=== PATIENT | male | born 1945 | race Caucasian/White ===

== ENCOUNTER 2016-07-06 10:19 | Inpatient (IN) | payer OTHER, MEDICARE ==
[2016-07-06] VITALS (13 sets, daily range): BP systolic 107–175; BP diastolic 56–97; PULSE 63–125; RESP 18–20; TEMP 97.5–98.3; O2SAT 94–99
[~2016-07-06] VITALS: Ht 180.3 cm; Wt 71.3 kg
[~2016-07-06 10:19] MED LIST: 1-ME1LIQ PO; ASPI81TA11 PO; ATOR20TA PO; LEVA500T PO; METO100T PO
[2016-07-06] MEDS ORDERED: SODIUM CHLORIDE 0.9% FLUSH 5 ML FLUSH IVF PRN (10:30)
[2016-07-06] MEDS ORDERED: AMIODARONE INJ 150 MG in DEXTROSE 5% IN WATER 100ML INJ 97 ML IV ONE ×2 (10:30)
[2016-07-06] MEDS ORDERED: AMIODARONE INJ 450 MG in DEXTROSE 5% IN WATE(EXCEL) INJ 241 ML IV SCH ×4 (10:45→16:30)
--- NOTE | 2016-07-06 10:47 | PD ---
HPI . Firing of defibrillator Chief Complaint: Cardiac Complaint Time Seen by Provider: 10:28 Travel History International Travel<30 days: No Contact w/Intl Traveler<30days: No Traveled to known affect area: No History of Present Illness HPI Patient reports that he was taking out the garbage when his defibrillator fired. He states that it fired a total of 3 times. He denies any symptoms associated with this. He denies chest pain, shortness of breath, nausea, dizziness, diaphoresis. He states that he feels perfectly fine. He states that he has never had his defibrillator fire before. PFSH Past Medical History Arthritis: No Asthma: No Autoimmune Disease: No Heart Rhythm Problems: No Cancer: No Cardiovascular Problems: Yes (hyperlipidemia, CHF, Afib, SVT, ICD) High Cholesterol: Yes Chest Pain: No Congestive Heart Failure: Yes COPD: No Cerebrovascular Accident: No Diabetes: Yes Patient Takes Glucophage: No Diminished Hearing: No Endocrine: Yes (diabetes diet controled) Gastrointestinal Disorders: No GERD: No Genitourinary: No Headaches: No Hepatitis: No Hiatal Hernia: No Heparin Induced Thrombocytopen: No Hypertension: Yes Immune Disorder: No Implanted Vascular Access Dvce: Yes (PACEMAKER) Kidney Stones: No Musculoskeletal: No Neurologic: No Psychiatric: No Reproductive: No Respiratory: No Migraines: No Myocardial Infarction: No Renal Failure: No Seizures: No Sickle Cell Disease: No Sleep Apnea: No Thyroid Disease: No Ulcer: No Influenza Vaccination: Yes PNEUMOCCOCAL Vaccine (Year): 1 ?: Not Past Surgical History Abdominal Surgery: No AICD: Yes (BIOTRONIK) Appendectomy: No Arteriovenous Shunt: No Cardiac Surgery: Yes (CABG 2 VESSELS) Cholecystectomy: No Coronary Artery Bypass Graft: Yes (2 VESSELS) Ear Surgery: No Endocrine Surgery: No Eye Surgery: No Genitourinary Surgery: No Gynecologic Surgery: No Insulin Pump: No Joint Replacement: No Neurologic Surgery: No Oral Surgery: Yes (DENTURES UPPER AND LOWER) Pacemaker: Yes Thoracic Surgery: Yes Other Surgery: Yes Social History Alcohol Use: No Tobacco Use: No Substance Use: No Allergies-Medications (Allergen,Severity, Reaction): Coded Allergies: No Known Allergies (Unverified , 02/16/16) Reported Meds & Prescriptions Reported Meds & Active Scripts Active Reported Aspirin EC (Aspirin) 81 Mg Tabdr 81 Mg PO DAILY Atorvastatin (Atorvastatin Calcium) 40 Mg Tab 40 Mg PO HS Metoprolol Tartrate 100 Mg Tab 100 Mg PO BID Review of Systems Except as stated in HPI: all other systems reviewed are Neg Cardiovascular: No: Chest Pain or Discomfort, Palpitations, Diaphoresis Respiratory: No: Shortness of Breath Gastrointestinal: No: Nausea Neurologic: No: Weakness, Dizziness Physical Exam Narrative GENERAL: Awake and alert and calm appearing SKIN: Warm and dry. HEAD: Atraumatic. Normocephalic. EYES: Pupils equal and round. ENT: No nasal bleeding or discharge. Mucous membranes pink and moist. NECK: Trachea midline. Neck is supple with full range of motion. CARDIOVASCULAR: Rapid rate, regular rhythm. RESPIRATORY: No accessory muscle use. Lungs are clear with full air movement throughout GASTROINTESTINAL: Abdomen soft, non-tender, nondistended. MUSCULOSKELETAL: No obvious deformities. No edema. NEUROLOGICAL: Awake and alert. No obvious cranial nerve deficits. Motor grossly within normal limits. Normal speech. PSYCHIATRIC: Appropriate mood and affect; insight and judgment normal. Data Data Last Documented VS Vital Signs Date Time Temp Pulse Resp B/P Pulse Ox O2 Delivery O2 Flow Rate FiO2 07/06/16 14:29 64 18 133/68 99 Nasal Cannula 2 07/06/16 10:47 97.8 Orders Ecg Monitoring (07/06/16 10:28) Blood Pressure (07/06/16 10:28) Vital Signs (07/06/16 10:28) Iv Access Insert/Monitor (07/06/16 10:28) Oximetry (07/06/16 10:28) Amiodarone Inj (Cordarone Inj) (07/06/16 10:30) Amiodarone Inj (Cordarone Inj) (07/06/16 10:45) Sodium Chloride 0.9% Flush (Ns Flush) (07/06/16 10:30) Ckmb (Isoenzyme) Profile (07/06/16 10:29) Complete Blood Count With Diff (07/06/16 10:29) Comprehensive Metabolic Panel (07/06/16 10:29) Magnesium (Mg) (07/06/16 10:29) Prothrombin Time / Inr (Pt) (07/06/16 10:29) Act Partial Throm Time (Ptt) (07/06/16 10:29) Troponin I (07/06/16 10:29) Chest, Single Ap (07/06/16 10:29) Bilateral Bp Monitoring (07/06/16 10:29) Oxygen Administration (07/06/16 10:29) Sodium Chloride 0.9% Flush (Ns Flush) (07/06/16 10:30) CKMB (07/06/16 10:44) CKMB% (07/06/16 10:44) Troponin I (07/06/16 11:41) Troponin I (07/06/16 13:30) Electrocardiogram (07/06/16 10:26) Place In Observation (07/06/16 14:14) Vital Signs (Adult) Q4H (07/06/16 14:14) Activity Bed Rest With Brp (07/06/16 14:14) ^ Carpet Jack / Telemetry .CONTINUOUS (07/06/16 14:14) Diet Heart Healthy (07/06/16 Dinner) Basic Metabolic Panel (Bmp) (07/07/16 06:00) Complete Blood Count With Diff (07/07/16 06:00) Troponin I (07/06/16 14:14) Troponin I (07/06/16 20:14) Scd Bilateral/Knee High MORIS.QSHIFT (07/06/16 14:14) Magnesium (Mg) (07/07/16 06:00) Electrocardiogram (07/06/16 14:14) Electrocardiogram (07/06/16 20:14) Electrocardiogram (07/07/16 02:14) Labs Laboratory Tests Test 07/06/16 07/06/16 10:44 13:20 White Blood Count 7.3 TH/MM3 Red Blood Count 3.99 MIL/MM3 Hemoglobin 12.0 GM/DL Hematocrit 35.7 % Mean Corpuscular Volume 89.5 FL Mean Corpuscular Hemoglobin 30.1 PG Mean Corpuscular Hemoglobin 33.7 % Concent Red Cell Distribution Width 20.5 % Platelet Count 177 TH/MM3 Mean Platelet Volume 8.5 FL Neutrophils (%) (Auto) 73.9 % Lymphocytes (%) (Auto) 16.6 % Monocytes (%) (Auto) 6.6 % Eosinophils (%) (Auto) 2.5 % Basophils (%) (Auto) 0.4 % Neutrophils # (Auto) 5.4 TH/MM3 Lymphocytes # (Auto) 1.2 TH/MM3 Monocytes # (Auto) 0.5 TH/MM3 Eosinophils # (Auto) 0.2 TH/MM3 Basophils # (Auto) 0.0 TH/MM3 CBC Comment DIFF FINAL Differential Comment Prothrombin Time 10.7 SEC Prothromb Time International 1.0 RATIO Ratio Activated Partial 22.8 SEC Thromboplast Time Sodium Level 138 MEQ/L Potassium Level 3.6 MEQ/L Chloride Level 107 MEQ/L Carbon Dioxide Level 18.9 MEQ/L Anion Gap 12 MEQ/L Blood Urea Nitrogen 21 MG/DL Creatinine 1.49 MG/DL Estimat Glomerular Filtration 47 ML/MIN Rate Random Glucose 244 MG/DL Calcium Level 9.8 MG/DL Magnesium Level 1.5 MG/DL Total Bilirubin 1.0 MG/DL Aspartate Amino Transf 32 U/L (AST/SGOT) Alanine Aminotransferase 33 U/L (ALT/SGPT) Alkaline Phosphatase 104 U/L Total Creatine Kinase 113 U/L Creatine Kinase MB 2.4 NG/ML Troponin I 0.10 NG/ML 0.92 NG/ML Total Protein 8.4 GM/DL Albumin 3.7 GM/DL MDM Medical Decision Making Medical Screen Exam Complete: Yes Emergency Medical Condition: Yes Interpretation(s) EKG shows a paced rhythm at 123. His EKG looks unchanged from previous with the exception of the rate. Differential Diagnosis Differential diagnosis includes but is not limited to acute coronary event, pacemaker dysfunction Narrative Course This patient presents asymptomatic following discharge of his defibrillator. EMS produces rhythm strips that look like V. tach. They started amiodarone en route. Patient is being evaluated for ACS. He is receiving amiodarone for rate control. We have called his pacemaker/defibrillator shrink pit supervisor for interrogation. Chest x-ray per the radiologist's interpretation is negative for acute process. The chest x-ray was independently viewed by me. 11:35 AM Patient's heart rate is down to 80-90. He continues to have no symptoms. 1:15 PM Repeat EKG shows a paced rhythm. It is now 74. His defibrillator/pacemaker has been interrogated. He was actually in an atrial driven rhythm when the defibrillator fired. The interrogator has adjusted rate at which the defibrillator fire. I anticipate discharge after we repeat his troponin. 2 PM Repeat troponin is 0.92. Therefore, he will have to stay. Critical Care Narrative Aggregate critical care time was 60 minutes. Time to perform other separately billable procedures was not included in the critical care time. My time did not include minutes spent treating any other patients simultaneously or on activities that did not directly contribute to the patient's treatment. The services I provided to this patient were to treat and/or prevent clinically significant deterioration that could result in: Terminal cardiac dysrhythmia, , neurological sequela I provided critical care services requiring my management, as noted below: Chart data review, documentation time, medication orders and management, vital sign assessments/reviewing monitor data, ordering and reviewing lab tests, ordering and interpreting/reviewing x-rays and diagnostic studies, care of the patient and discussion of the patient with the admitting physicians. Physician Communication Physician Communication Dr. Roblero will admit to obs. Diagnosis Primary Impression: Supraventricular tachycardia Additional Impression: Elevated troponin Admitting Information Admitting Physician Requests: Admit Patient Instructions: General Instructions, Supraventricular Tachycardia (ED) Condition: Stable Sita Almeida MD Jul 06, 2016 10:47
--- NOTE | 2016-07-06 10:54 | RADRPT ---
EXAM DATE/TIME: 07/06/2016 10:35 [facility] COMPARISON: CHEST SINGLE AP, February 26, 2016, 16:04. INDICATIONS : Chest pain and shortness of breath. MEDICAL HISTORY : Cardiovascular disease. Hypertension. Diabetes. SURGICAL HISTORY : Pacemaker. ENCOUNTER: Initial ACUITY: 1 day PAIN SCORE: 6/10 LOCATION: chest FINDINGS: Stable elevation of the right hemidiaphragm. Cardiomegaly, median sternotomy wires, mediastinal clips and pacer device is again seen. The lungs are clear. CONCLUSION: No acute disease. Eduardo Medeiros MD on July 06, 2016 at 10:52 Board Certified Radiologist. This report was verified electronically.
[2016-07-06] MEDS ORDERED: ATOR40TA16 PO (10:58)
[2016-07-06] MEDS ORDERED: METO100T PO (10:58)
[2016-07-06] MEDS ORDERED: ASPI81TA11 PO (10:58)
[2016-07-06 11:12] LABS: AUTOMATED NEUTROPHIL # 5.4 TH/MM3 (1.8-7.7); BASOPHIL % 0.4 % (0.0-2.0); EOSINOPHIL # 0.2 TH/MM3 (0-0.4); EOSINOPHIL % 2.5 % (0.0-4.0); HEMATOCRIT 35.7 % (39.0-51.0); HEMO FLAGS DIFF FINAL; LYMPH % 16.6 % (9.0-44.0); LYMPHOCYTE # 1.2 TH/MM3 (1.0-4.8); MEAN CELL VOLUME 89.5 FL (80.0-100.0); MEAN CORPUSCULAR HEMOGLOBIN 30.1 PG (27.0-34.0); MEAN CORPUSCULAR HGB CONC 33.7 % (32.0-36.0); MONO % 6.6 % (0.0-8.0); NEUT % 73.9 % (16.0-70.0); PLATELET COUNT 177 TH/MM3 (150-450); RED BLOOD COUNT 3.99 MIL/MM3 (4.50-5.90); RED CELL DISTRIBUTION WIDTH 20.5 % (11.6-17.2); WHITE BLOOD COUNT 7.3 TH/MM3 (4.0-11.0)
[2016-07-06 11:34] LABS: ALT (GPT) 33 U/L (12-78); ANION GAP 12 MEQ/L (5-15); AST (GOT) 32 U/L (15-37); BICARBONATE 18.9 MEQ/L (21.0-32.0); BLOOD UREA NITROGEN 21 MG/DL (7-18); CHLORIDE 107 MEQ/L (98-107); GLOMERULAR FILTRATION RATE 47 ML/MIN (>89); MAGNESIUM 1.5 MG/DL (1.5-2.5); POTASSIUM 3.6 MEQ/L (3.5-5.1); SODIUM (NA) 138 MEQ/L (136-145)
[2016-07-06 11:38] LABS: ALKALINE PHOSPHATASE 104 U/L (45-117); CREATINE KINASE 113 U/L (39-308)
[2016-07-06 11:50] LABS: CKMB 2.4 NG/ML (0.5-3.6)
[2016-07-06 12:16] LABS: APTT (PATIENT) 22.8 SEC (24.3-30.1); PROTHROMBIN TIME - PATIENT 10.7 SEC (9.8-11.6)
--- NOTE | 2016-07-06 16:07 | HHI.HP ---
[facility] Primary Care Physician Unknown Admission Diagnosis ELEVATED TROP Diagnoses: Chief Complaint: AICD fired Travel History International Travel<30 Days: No Contact w/Intl Traveler <30 Da: No Traveled to Known Affected Are: No History of Present Illness This is very pleasant 71-year-old gentleman with a past medical history which includes: CAD status post CABG, CHF with ejection fraction around 25% status post AICD, Colon cancer status post descending colectomy, sigmoid polypectomy and diverting loop ileostomy, currently undergoing chemotherapy patient and sister is at bedside do not recall exact chemotherapy agents, Hypertension, Hyperlipidemia, Chronic renal failure, Diabetes diet controlled and Amputation of right second toe/ osteomyelitis. The patient was taking his garbage can on his AICD fired there her fourth proceeded to the emergency department for further evaluation and treatment. Patient reports that he did have pain when the AICD fired but other than that denies chest pain. Patient denies loss of consciousness or feeling dizzy or lightheaded prior to event. Patient reports he feels, "pretty well now." And offers no specific complaints. Interrogation of the AICD reveals rapid atrial rhythm AICD rate limits have been adjusted. Evaluation of EMS monitoring strips as well as EKGs by myself and Dr. Roblero- patient did have a wide-complex tachycardia. Review of Systems Other All other systems reviewed and neg with the exceptions listed in history of present illness Past Family Social History Past Medical History CAD status post CABG CHF with ejection fraction around 25% status post AICD Colon cancer status post descending colectomy, sigmoid polypectomy and diverting loop ileostomy Hypertension Hyperlipidemia Chronic renal failure Diabetes Amputation of right second toe/ osteomyelitis Past Surgical History CABG AICD placement Descending colectomy, sigmoid polypectomy and diverting loop ileostomy Amputation of right second toe Reported Medications Aspirin EC (Aspirin) 81 Mg Tabdr 81 Mg PO DAILY Atorvastatin (Atorvastatin Calcium) 40 Mg Tab 40 Mg PO HS Metoprolol Tartrate 100 Mg Tab 100 Mg PO BID Allergies: Coded Allergies: No Known Allergies (Unverified , 02/16/16) Family History Emphysema Social History Denies EtOH use tobacco use or illicit drug use Physical Exam Vital Signs Vital Signs Date Time Temp Pulse Resp B/P Pulse Ox O2 Delivery O2 Flow Rate FiO2 07/06/16 15:10 98.3 78 18 146/77 99 07/06/16 14:29 64 18 133/68 99 Nasal Cannula 2 07/06/16 12:46 63 18 149/82 98 Nasal Cannula 2 07/06/16 11:43 89 18 156/80 98 Nasal Cannula 2 07/06/16 11:09 89 18 166/72 97 Nasal Cannula 2 07/06/16 10:47 97.8 106 18 166/87 99 Nasal Cannula 2 07/06/16 10:37 114 171/97 07/06/16 10:33 99 Nasal Cannula 2 07/06/16 10:33 108 18 171/97 99 Nasal Cannula 2 07/06/16 10:33 113 175/83 171/97 07/06/16 10:33 18 99 2 07/06/16 10:27 115 18 99 Room Air 07/06/16 10:27 98.3 119 18 175/83 99 Nasal Cannula 2 07/06/16 10:22 97.8 125 18 175/83 97 Physical Exam GENERAL: This is an elderly 71-year-old, in no apparent distress. SKIN: No rashes, ecchymoses or lesions. Cool and dry. HEAD: Atraumatic. Normocephalic. No temporal or scalp tenderness. EYES: Extraocular motions intact. No scleral icterus. No injection or drainage. ENT: Nose without bleeding, purulent drainage or septal hematoma. Throat without erythema, tonsillar hypertrophy or exudate. Uvula midline. Airway patent. NECK: Trachea midline. No JVD or lymphadenopathy. Supple, nontender, no meningeal signs. CARDIOVASCULAR: Regular rate and rhythm 2/6 murmur noted RESPIRATORY: Clear to auscultation. Breath sounds equal bilaterally. No wheezes , rales, or rhonchi. GASTROINTESTINAL: Abdomen soft, non-tender, nondistended. No hepato-splenomegaly , or palpable masses. No guarding. Colostomy bag in recently changed. MUSCULOSKELETAL: Extremities without clubbing, cyanosis, or edema. No joint tenderness, effusion, or edema noted. No calf tenderness. Negative Homans sign bilaterally. NEUROLOGICAL: Awake and alert. No focal deficits noted Motor and sensory grossly within normal limits. 4-5 out of 5 muscle strength in all muscle groups. Normal speech. Laboratory Laboratory Tests Test 07/06/16 07/06/16 10:44 13:20 White Blood Count 7.3 Red Blood Count 3.99 Hemoglobin 12.0 Hematocrit 35.7 Mean Corpuscular Volume 89.5 Mean Corpuscular Hemoglobin 30.1 Mean Corpuscular Hemoglobin 33.7 Concent Red Cell Distribution Width 20.5 Platelet Count 177 Mean Platelet Volume 8.5 Neutrophils (%) (Auto) 73.9 Lymphocytes (%) (Auto) 16.6 Monocytes (%) (Auto) 6.6 Eosinophils (%) (Auto) 2.5 Basophils (%) (Auto) 0.4 Neutrophils # (Auto) 5.4 Lymphocytes # (Auto) 1.2 Monocytes # (Auto) 0.5 Eosinophils # (Auto) 0.2 Basophils # (Auto) 0.0 CBC Comment DIFF FINAL Differential Comment Prothrombin Time 10.7 Prothromb Time International 1.0 Ratio Activated Partial 22.8 Thromboplast Time Sodium Level 138 Potassium Level 3.6 Chloride Level 107 Carbon Dioxide Level 18.9 Anion Gap 12 Blood Urea Nitrogen 21 Creatinine 1.49 Estimat Glomerular Filtration 47 Rate Random Glucose 244 Calcium Level 9.8 Magnesium Level 1.5 Total Bilirubin 1.0 Aspartate Amino Transf 32 (AST/SGOT) Alanine Aminotransferase 33 (ALT/SGPT) Alkaline Phosphatase 104 Total Creatine Kinase 113 Creatine Kinase MB 2.4 Troponin I 0.10 0.92 Total Protein 8.4 Albumin 3.7 Result Diagram: 07/06/16 1044 07/06/16 1044 Imaging Last Impressions Chest X-Ray 07/06/16 1029 Signed Impressions: Service Date/Time: Wednesday, July 06, 2016 10:35 - CONCLUSION: No acute disease. Eduardo Medeiros MD Assessment and Plan Assessment and Plan This is very pleasant 71-year-old gentleman with a past medical history which includes: CAD status post CABG, CHF with ejection fraction around 25% status post AICD, Colon cancer status post descending colectomy, sigmoid polypectomy and diverting loop ileostomy, currently undergoing chemotherapy patient and sister is at bedside do not recall exact chemotherapy agents, Hypertension, Hyperlipidemia, Chronic renal failure, Diabetes diet controlled and Amputation of right second toe/ osteomyelitis. The patient was taking his garbage can on his AICD fired CHF status post AICD/ CAD Elevated troponin after AICD fire - Trend troponin - consult cardiology patient known to Dr. Macias - Interrogation of the AICD reveals rapid atrial rhythm AICD rate limits have been adjusted. - Evaluation of EMS monitoring strips as well as EKGs by myself and Dr. Roblero - patient did have a wide-complex tachycardia. - Monitor on telemetry. 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 The patient is status post ascending colectomy, sigmoid polypectomy and a diverting loop ileostomy. He has noticed leakage from the ostomy site. He says there are plans for potential chemotherapy in the future. - Ostomy nurse to assist with leaking ostomy bag. - Outpatient follow-up with colorectal surgery and oncology. Chronic kidney disease avoid nephrotoxins -Acute on chronic renal failure Anemia Likely secondary to colon cancer as well as chronic kidney disease. - Follow CBC. Hypertension - Continue metoprolol. DVT prophylaxis SCDs Discussed with ER provider, RN, patient and sister who is at bedside Written by Mindy Marsh, acting as scribe for Dr. Roblero on 07/06/16 at 16:07. The documentation accurately reflects the work performed [id number] by me on 07/06/16 at 16:07 Mindy Marsh Jul 06, 2016 16:07 Omar Roblero MD Jul 07, 2016 09:57
--- NOTE | 2016-07-06 18:06 | MB ---
cc: MILLIE HENSON M.D. DATE OF CONSULTATION 07/06/16 CHIEF COMPLAINT Multiple ICD shocks. HISTORY OF PRESENT ILLNESS The patient is a 71-year-old, white, male with a history of known coronary artery disease and an ischemic cardiomyopathy. He underwent cardiac catheterization in 2008 and was found to have moderate three-vessel coronary artery disease and impaired left ventricular function. He subsequently deteriorated and had an ICD placed by Dr. Macias. To me he denies any history of atrial fibrillation but his chart reflects CHF history. He is a diet-controlled diabetic and there is a history of hypertension and hyperlipidemia. He was well and at baseline health this morning. He went to take the trash out to the curb and without warning and without antecedent symptoms he experienced an ICD shock. He then received a second shock and after walking inside to rest he received a third shock. He was otherwise asymptomatic but the multiple shocks brought him to the emergency room where he was diagnosed with atrial fibrillation and a rapid ventricular response. His device was in fact tracking atrial fibrillation at the upper tracking limit on admission and he was subsequently started on IV amiodarone with conversion to sinus rhythm and demonstrated on a follow up EKG 2-1/2 hours later P-wave synchronous pacing. He continues to be asymptomatic from a cardiovascular perspective, in sinus rhythm. He denies any recent angina pectoris or chest discomfort. He denies any palpitations, syncope or presyncope. He denies symptoms of congestive failure. At the time I see him he is completely back to baseline health. PHYSICAL EXAMINATION GENERAL: On general inspection he is an alert, pleasant gentleman lying in bed in no distress. VITAL SIGNS: Reveal a blood pressure of 146/77 pulse of 78, respirations of 18. Patient is afebrile. Saturations are 99% on room air. HEENT/NECK: Unremarkable for the patient's age. LUNGS: Clear. CARDIOVASCULAR: Regular rate and rhythm. Minimal systolic murmur. S1-S2 are unremarkable. ABDOMEN: Soft without masses, tenderness, organomegaly. Bowel sounds within normal limits. GENITAL/RECTAL: Deferred. EXTREMITIES: No cyanosis, clubbing or edema. NEUROLOGIC: Grossly intact without focal findings. LABORATORY DATA The patient's initial troponin is elevated at 0.10. It is far too early to be for myocardial ischemia and almost certainly represents multiple ICD shocks. Followup troponin is 0.92. Basic metabolic panel was unremarkable except for the creatinine of 1.49. Clotting studies are normal. CBC is normal except for a mild anemia. IMAGING STUDIES Chest x-ray is unremarkable. CARDIOLOGY STUDIES EKG shows initially what appears to be atrial fibrillation at 10:26 with rapid pacing and tracking and then subsequently at 12:42 P-wave synchronous biventricular pacing. ASSESSMENT/PLAN Essentially, the patient presents with atrial fibrillation. Interrogation of the device has shown atrial fibrillation starting at 10:40 a.m. and continuing to 11:20 a.m. with a reported rapid ventricular response and a ventricular rate of 160-170. This is despite relatively high dose beta blockade at home. ATP as expected was unsuccessful and he received multiple inappropriate shocks. The device has been reprogrammed to give a lower VT zone of 188 beats per minute to an upper of 240 beats per minute. The tracking, however, remains up to 130 beats per minute and the patient does have a DDD device. I think we need to lower the upper tracking limit to 100 beats per minute. We should be able to resume his prior VT zone rate once he has had a few days of amiodarone. I think in light of the fact that he had such rapid atrial fibrillation and is paroxysmal that considering amiodarone therapy at this time would be appropriate. He will also need to be placed on embolization prophylaxis. We may want to involve his moving consultant in that decision as he is only a few months post colon resection for colon cancer. Still, he has normochromic, normocytic indices and only a minimal anemia but a lot of risk with coronary disease, congestive failure, age and diabetes for embolization. We should be able to began Eliquis 5 milligrams p.o. b.i.d. I am going to continue his beta megan. I am going to avoid PARVIN inhibitors with his renal dysfunction. I am going to continue IV amiodarone. Once his atrial fibrillation is under good control I am going to reprogram the device back to a more normal VT zone and I think, at least in the short-term, the upper tracking rate of 130 is not a problem as he is actually asymptomatic but with coronary disease and the troponin rise I will get the program back down as I would not want to sustain pacing at 130 beats per minute. He may ultimately require stress nuclear testing but I think the elevated troponin is secondary to multiple ICD shocks. MD SAV Sesay/CISCO /5:15 PM /5:45 PM
[2016-07-06] MEDS: METOPROLOL TARTRATE 100 MG TAB PO SCH (21:49)
[2016-07-06] MEDS: ATORVASTATIN 40 MG TAB PO SCH (21:49)
[2016-07-06] MEDS: APIXABAN 5 MG TABLET PO SCH (21:49)
[2016-07-07] VITALS (7 sets, daily range): BP systolic 120–157; BP diastolic 58–75; PULSE 59–76; RESP 18–20; TEMP 97.5–98.4; O2SAT 97–98
[2016-07-07 06:59] LABS: AUTOMATED NEUTROPHIL # 5.5 TH/MM3 (1.8-7.7); BASOPHIL % 0.6 % (0.0-2.0); EOSINOPHIL # 0.3 TH/MM3 (0-0.4); EOSINOPHIL % 3.6 % (0.0-4.0); HEMATOCRIT 31.7 % (39.0-51.0); HEMO FLAGS DIFF FINAL; LYMPHOCYTE # 1.7 TH/MM3 (1.0-4.8); MEAN CELL VOLUME 89.5 FL (80.0-100.0); MEAN CORPUSCULAR HEMOGLOBIN 30.1 PG (27.0-34.0); MEAN CORPUSCULAR HGB CONC 33.7 % (32.0-36.0); MONO % 6.7 % (0.0-8.0); NEUT % 68.1 % (16.0-70.0); PLATELET COUNT 179 TH/MM3 (150-450); RED BLOOD COUNT 3.55 MIL/MM3 (4.50-5.90); RED CELL DISTRIBUTION WIDTH 20.1 % (11.6-17.2)
[2016-07-07 07:08] LABS: BICARBONATE 22.7 MEQ/L (21.0-32.0); MAGNESIUM 1.7 MG/DL (1.5-2.5); POTASSIUM 3.5 MEQ/L (3.5-5.1)
[2016-07-07] MEDS: APIXABAN 5 MG TABLET PO SCH ×2 (08:58→21:20)
[2016-07-07] MEDS: ASPIRIN EC 81 MG TABEC PO SCH (08:58)
[2016-07-07] MEDS: METOPROLOL TARTRATE 100 MG TAB PO SCH ×2 (08:58→21:19)
--- NOTE | 2016-07-07 10:01 | HHI.PR ---
Subjective Remarks Follow-up for AICD firing No further events, no AICD firing. Denies any chest pain or shortness of breath. Denies palpitations. Objective Vitals Vital Signs Date Time Temp Pulse Resp B/P Pulse Ox O2 Delivery O2 Flow Rate FiO2 07/07/16 08:00 98.0 62 18 157/74 98 07/07/16 04:00 Room Air 07/07/16 04:00 98.4 60 18 125/61 97 07/07/16 00:00 98.1 59 18 120/58 98 07/07/16 00:00 Room Air 07/06/16 20:00 Room Air 07/06/16 20:00 75 07/06/16 20:00 98.2 77 20 107/56 94 07/06/16 15:20 97.5 66 20 150/67 98 07/06/16 15:10 98.3 78 18 146/77 99 07/06/16 14:29 64 18 133/68 99 Nasal Cannula 2 07/06/16 12:46 63 18 149/82 98 Nasal Cannula 2 07/06/16 11:43 89 18 156/80 98 Nasal Cannula 2 07/06/16 11:09 89 18 166/72 97 Nasal Cannula 2 07/06/16 10:47 97.8 106 18 166/87 99 Nasal Cannula 2 07/06/16 10:37 114 171/97 07/06/16 10:33 99 Nasal Cannula 2 07/06/16 10:33 108 18 171/97 99 Nasal Cannula 2 07/06/16 10:33 113 175/83 171/97 07/06/16 10:33 18 99 2 07/06/16 10:27 115 18 99 Room Air 07/06/16 10:27 98.3 119 18 175/83 99 Nasal Cannula 2 07/06/16 10:22 97.8 125 18 175/83 97 I/O 07/06/16 07/06/16 07/06/16 07/07/16 07/07/16 07/07/16 07:00 15:00 23:00 07:00 15:00 23:00 Intake Total 240 ml 247 ml Output Total 200 ml 750 ml Balance 40 ml -503 ml Intake Oral 240 ml 120 ml IV Total 127 ml Output Urine Total 100 ml 350 ml Stool Total 100 ml 400 ml Result Diagram: 1/07/23 51907/07/16 0520 Objective Remarks Not in distress, well-nourished, looks stated age PERRL, pink conjunctiva without injection, anicteric Nose without bleeding, airway patent, oropharynx clear Supple neck, no masses or thyromegaly, trachea midline Normal rate and irregular rhythm, 2/6 heart murmur. Clear to auscultation and symmetric bilaterally, normal respiratory effort. Normal bowel sounds, soft, non-tender, nondistended, no guarding. Colostomy bag in place. Extremities without clubbing, cyanosis, or edema. No rash of generalized distribution. Skin is warm and dry. AAO x3, no cranial nerve deficits, moves all 4 extremities, no focal neurologic deficits Normal mood, appropriate affect A/P Assessment and Plan This is very pleasant 71-year-old gentleman with a past medical history which includes: CAD status post CABG, CHF with ejection fraction around 25% status post AICD, Colon cancer status post descending colectomy, sigmoid polypectomy and diverting loop ileostomy, currently undergoing chemotherapy patient and sister is at bedside do not recall exact chemotherapy agents, Hypertension, Hyperlipidemia, Chronic renal failure, Diabetes diet controlled and Amputation of right second toe/ osteomyelitis. The patient was taking his garbage can on his AICD fired CHF status post AICD/ CAD Elevated troponin after AICD fire - Troponin maxed at 0.92, mangle feeder following, status post Interrogation of the AICD reveals rapid atrial fibrillation , AICD rate limits have been adjusted. Further readjustment per cardiology. Start amiodarone and eliquis for cardiology, continue beta blockers, avoid PARVIN inhibitors. Might need a stress test later, check echocardiogram. Admit as inpatient. Monitor on telemetry. Continue aspirin. 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 The patient is status post ascending colectomy, sigmoid polypectomy and a diverting loop ileostomy. He has noticed leakage from the ostomy site. He says there are plans for potential chemotherapy in the future. Ostomy nurse to assist with leaking ostomy bag. Consult colorectal surgery tomorrow for clearance for anticoagulation. Chronic kidney disease avoid nephrotoxins -Acute on chronic renal failure, monitor. Creatinine is stable. Anemia Likely secondary to colon cancer as well as chronic kidney disease. Per cardiology, consult GI for clearance for anticoagulation. CBC stable. Hypertension - Continue metoprolol. DVT prophylaxis SCDs, Eliquis. Omar Roblero MD Jul 07, 2016 10:01
--- NOTE | 2016-07-07 13:30 | EKG ---
Date Performed: 07/06/2016 Time Performed: 10:26:00 PTAGE: 71 years EKG: ELECTRONIC VENTRICULAR PACEMAKER THE PATIENT APPEARS TO HAVE UNDERLYING ATRIAL FIBRILLATION BEING TRACKED BY THE PACING DEVICE. THE ATRIAL FIBRILLATION APPEARS TO BE A NEW FINDING SINCE THE WA IOR TRACING. ABNORMAL RHYTHM ECG PREVIOUS TRACING : 02/26/2016 09.31 DOCTOR: Katie Jimenez Interpretating Date/Time 07/07/2016 13:39:01
--- NOTE | 2016-07-07 13:41 | EKG ---
Date Performed: 07/06/2016 Time Performed: 12:42:28 PTAGE: 71 years EKG: ELECTRONIC VENTRICULAR PACEMAKER ABNORMAL RHYTHM ECG Compared to PREVIOUS TRACING the patient now clearly has P-wave synchronous pacing with resolution o f the atrial fibrillation noted on the previous study. Clinical correlation remains important. PREVIO US TRACIN07/06/2016 10.26 DOCTOR: Katie Jimenez Interpretating Date/Time 07/07/2016 13:39:59
--- NOTE | 2016-07-07 14:02 | EKG ---
Date Performed: 07/06/2016 Time Performed: 20:26:08 PTAGE: 71 years EKG: ELECTRONIC VENTRICULAR PACEMAKER ABNORMAL RHYTHM ECG Since PREVIOUS TRACING , no significant change noted PREVIOUS TRACIN07/06/2016 12.42 DOCTOR: Katie Jimenez Interpretating Date/Time 07/07/2016 14:00:50
[2016-07-07] MEDS ORDERED: AMIODARONE 200 MG TAB PO ONE (14:15)
--- NOTE | 2016-07-07 14:24 | PD.CARD.PN ---
Subjective Subjective Remarks Feels well. No CV complaints. Objective Medications Vital Signs Date Time Temp Pulse Resp B/P Pulse Ox O2 Delivery O2 Flow Rate FiO2 07/07/16 12:00 97.9 64 18 141/75 97 07/07/16 08:35 60 07/07/16 08:35 Room Air 07/07/16 08:00 98.0 62 18 157/74 98 07/07/16 04:00 Room Air 07/07/16 04:00 98.4 60 18 125/61 97 07/07/16 00:00 98.1 59 18 120/58 98 07/07/16 00:00 Room Air 07/06/16 20:00 Room Air 07/06/16 20:00 75 07/06/16 20:00 98.2 77 20 107/56 94 07/06/16 15:20 97.5 66 20 150/67 98 07/06/16 15:10 98.3 78 18 146/77 99 07/06/16 14:29 64 18 133/68 99 Nasal Cannula 2 Vital Signs / I&O Vital Signs Date Time Temp Pulse Resp B/P Pulse Ox O2 Delivery O2 Flow Rate FiO2 07/07/16 12:00 97.9 64 18 141/75 97 07/07/16 08:35 60 07/07/16 08:35 Room Air 07/07/16 08:00 98.0 62 18 157/74 98 07/07/16 04:00 Room Air 07/07/16 04:00 98.4 60 18 125/61 97 07/07/16 00:00 98.1 59 18 120/58 98 07/07/16 00:00 Room Air 07/06/16 20:00 Room Air 07/06/16 20:00 75 07/06/16 20:00 98.2 77 20 107/56 94 07/06/16 15:20 97.5 66 20 150/67 98 07/06/16 15:10 98.3 78 18 146/77 99 07/06/16 14:29 64 18 133/68 99 Nasal Cannula 2 I/O 07/06/16 07/06/16 07/06/16 07/07/16 07/07/16 07/07/16 06:59 14:59 22:59 06:59 14:59 22:59 Intake Total 240 ml 247 ml Output Total 200 ml 750 ml Balance 40 ml -503 ml Intake Oral 240 ml 120 ml IV Total 127 ml Output Urine Total 100 ml 350 ml Stool Total 100 ml 400 ml Physical Exam HEENTN: negative Lungs: Clear CV: negative Abd: wnl. BS wnl Ext: negative Neuro: wnl Laboratory Laboratory Tests Test 07/07/16 05:20 White Blood Count 8.0 TH/MM3 Red Blood Count 3.55 MIL/MM3 Hemoglobin 10.7 GM/DL Hematocrit 31.7 % Mean Corpuscular Volume 89.5 FL Mean Corpuscular Hemoglobin 30.1 PG Mean Corpuscular Hemoglobin 33.7 % Concent Red Cell Distribution Width 20.1 % Platelet Count 179 TH/MM3 Mean Platelet Volume 8.2 FL Neutrophils (%) (Auto) 68.1 % Lymphocytes (%) (Auto) 21.0 % Monocytes (%) (Auto) 6.7 % Eosinophils (%) (Auto) 3.6 % Basophils (%) (Auto) 0.6 % Neutrophils # (Auto) 5.5 TH/MM3 Lymphocytes # (Auto) 1.7 TH/MM3 Monocytes # (Auto) 0.5 TH/MM3 Eosinophils # (Auto) 0.3 TH/MM3 Basophils # (Auto) 0.0 TH/MM3 CBC Comment DIFF FINAL Differential Comment Sodium Level 138 MEQ/L Potassium Level 3.5 MEQ/L Chloride Level 106 MEQ/L Carbon Dioxide Level 22.7 MEQ/L Anion Gap 9 MEQ/L Blood Urea Nitrogen 16 MG/DL Creatinine 1.22 MG/DL Estimat Glomerular Filtration 59 ML/MIN Rate Random Glucose 102 MG/DL Calcium Level 9.4 MG/DL Magnesium Level 1.7 MG/DL Troponin I 0.68 NG/ML Imaging Last 48 hours Impressions Chest X-Ray 07/06/16 1029 Signed Impressions: Service Date/Time: Wednesday, July 06, 2016 10:35 - CONCLUSION: No acute disease. Eduardo Medeiros MD Assessment and Plan Assessment and Plan I believr he had AF with inappropriate shocks from rapid rate despite high dose beta megan. I am unable to find electrograms from ICD check but asked nurse to see if they can be located. I am adding amiodarone for rate control and prevention of AF. Will get baseline amiodarone lab. His troponin rise is likely multiple shocks but check nuclear to r/o ischemia. ECHO pending. He needs at least 48 hour of po amiodarone prior to discharge and the reprogramming his VT zone back to prior setting to avoid undetected VT at slower rates. Temporarily programmed to avoid inappropriate shocks if AF recurs. He is completely stable from CV perspective with plan outlined so I will have Dr. Berger see him prn tomarrow so call for questions. Dr. Macias his regular casket liner will be told to follow up Friday. Katie Jimenez MD Jul 07, 2016 14:24
[2016-07-07] MEDS: AMIODARONE 200 MG TAB PO SCH (16:43)
[2016-07-07] MEDS: ATORVASTATIN 40 MG TAB PO SCH (21:20)
[2016-07-08] VITALS (7 sets, daily range): BP systolic 114–135; BP diastolic 61–74; PULSE 60–80; RESP 18–20; TEMP 97.3–98; O2SAT 95–98
[2016-07-08] MEDS: AMIODARONE 200 MG TAB PO SCH ×3 (09:36→17:49)
[2016-07-08] MEDS: ASPIRIN EC 81 MG TABEC PO SCH (09:36)
[2016-07-08] MEDS: APIXABAN 5 MG TABLET PO SCH ×2 (09:36→21:44)
[2016-07-08] MEDS: METOPROLOL TARTRATE 100 MG TAB PO SCH ×2 (09:36→21:45)
[2016-07-08 09:54] LABS: ALKALINE PHOSPHATASE 98 U/L (45-117); ALT (GPT) 23 U/L (12-78); ANION GAP 9 MEQ/L (5-15); AST (GOT) 26 U/L (15-37); BICARBONATE 24.6 MEQ/L (21.0-32.0); BLOOD UREA NITROGEN 15 MG/DL (7-18); CHLORIDE 103 MEQ/L (98-107); GLOMERULAR FILTRATION RATE 55 ML/MIN (>89); POTASSIUM 3.6 MEQ/L (3.5-5.1); SODIUM (NA) 137 MEQ/L (136-145); TOTAL BILIRUBIN ADULT 1.3 MG/DL (0.2-1.0)
--- NOTE | 2016-07-08 09:59 | HHI.PR ---
Subjective Remarks Follow-up for AICD firing No overnight events, no AICD firing any further. No chest pain or palpitation. Not short of breath. Objective Vitals Vital Signs Date Time Temp Pulse Resp B/P Pulse Ox O2 Delivery O2 Flow Rate FiO2 07/08/16 08:00 97.6 80 20 135/74 96 07/08/16 04:00 Room Air 07/08/16 04:00 97.8 63 20 124/64 98 07/08/16 00:00 97.3 60 20 127/68 97 07/08/16 00:00 Room Air 07/07/16 20:00 64 07/07/16 20:00 98.4 76 20 127/69 97 07/07/16 20:00 Room Air 07/07/16 16:00 97.5 63 20 149/68 97 07/07/16 12:00 97.9 64 18 141/75 97 I/O 07/07/16 07/07/16 07/07/16 07/08/16 07/08/16 07/08/16 07:00 15:00 23:00 07:00 15:00 23:00 Intake Total 247 ml 720 ml 280 ml 0 ml Output Total 750 ml 300 ml Balance -503 ml 720 ml -20 ml 0 ml Intake Oral 120 ml 720 ml 280 ml 0 ml IV Total 127 ml Output Urine Total 350 ml 300 ml Stool Total 400 ml # Voids 2 2 # Bowel Movements 1 1 0 Result Diagram: 07/07/16 0520 07/08/16 0841 Objective Remarks Not in distress, well-nourished, looks stated age PERRL, pink conjunctiva without injection, anicteric Nose without bleeding, airway patent, oropharynx clear Supple neck, no masses or thyromegaly, trachea midline Normal rate and irregular rhythm, 2/6 heart murmur. Clear to auscultation and symmetric bilaterally, normal respiratory effort. Normal bowel sounds, soft, non-tender, nondistended, no guarding. Colostomy bag in place. Extremities without clubbing, cyanosis, or edema. No rash of generalized distribution. Skin is warm and dry. AAO x3, no cranial nerve deficits, moves all 4 extremities, no focal neurologic deficits Normal mood, appropriate affect A/P Assessment and Plan This is very pleasant 71-year-old gentleman with a past medical history which includes: CAD status post CABG, CHF with ejection fraction around 25% status post AICD, Colon cancer status post descending colectomy, sigmoid polypectomy and diverting loop ileostomy, currently undergoing chemotherapy patient and sister is at bedside do not recall exact chemotherapy agents, Hypertension, Hyperlipidemia, Chronic renal failure, Diabetes diet controlled and Amputation of right second toe/ osteomyelitis. The patient was taking his garbage can on his AICD fired CHF status post AICD/ CAD Elevated troponin after AICD fire - Troponin maxed at 0.92, director of workforce development following, status post Interrogation of the AICD reveals rapid atrial fibrillation , AICD rate limits have been adjusted. Further readjustment per cardiology. Oral amiodarone started and mirna, keep oral amiodarone for 48 hours and if stable, may discharge per cardiology. Continue beta blockers and PARVIN inhibitor's. Check stress test, follow-up echocardiogram. Continue telemetry and aspirin. Follow-up CMP and TSH. Per cardiology, needs at least 48 hour of po amiodarone prior to discharge and the reprogramming his VT zone back to prior setting to avoid undetected VT at slower rates. Temporarily programmed to avoid inappropriate shocks if AF recurs. 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 The patient is status post ascending colectomy, sigmoid polypectomy and a diverting loop ileostomy. He has noticed leakage from the ostomy site. He says there are plans for potential chemotherapy in the future. Ostomy nurse to assist with leaking ostomy bag. Chronic kidney disease avoid nephrotoxins -Acute on chronic renal failure, monitor. Creatinine is stable. Anemia Likely secondary to colon cancer as well as chronic kidney disease. CBC stable. Hypertension - Continue metoprolol. DVT prophylaxis RACHANAsMirna. Omar Roblero MD Jul 08, 2016 09:59
[2016-07-08] MEDS ORDERED: REGADENOSON INJ 0.4 MG/5 ML SYR ONE (11:23)
--- NOTE | 2016-07-08 12:57 | RADRPT ---
EXAM DATE/TIME: 07/08/2016 10:53 [facility] COMPARISON: No previous studies available for comparison. INDICATIONS : Elevated troponins with multiple ICD shocks and prior coronary artery bypass grafting. Atrial fibril lation. Abnormal EKG. DOSE: 26.1 mCi Tc99m Myoview at stress. 8.1 mCi Tc99m Myoview at rest. 0.4 mg Lexiscan STRESS SYMPTOMS: Dyspnea. EJECTION FRACTION: 36% MEDICAL HISTORY : Hypertension. Diabetes mellitus type 2. Carcinoma, colon. SURGICAL HISTORY : CABG Colostomy. Defibrillator. ENCOUNTER: Initial ACUITY: 1 day PAIN SCALE: 0/10 LOCATION: Substernal chest TECHNIQUE: The patient underwent pharmacologic stress with infusion of prescribed dose. Continuous ECG tracing was monitored during stress. Gated SPECT imaging was performed after stress and conventional SPECT i maging was performed at rest. The examination was performed on a SPECT/CT scanner, both attenuation and non-corrected datasets were reviewed. FINDINGS: DISTRIBUTION: The maximum perfused segment at stress is in the anterolateral wall. PERFUSION STUDY: Questionable small reversible perfusion defect anteroseptal wall and a fixed anterior wall defect, mi dportion. GATED STUDY: Global hypokinesis with ejection fraction of 36%. CONCLUSION: Questionable small reversible perfusion defect anteroseptal region and a fixed defect anterior wall m idportion, small. No Global hypokinesis with ejection fraction of 36% RISK CATEGORY: Intermediate (1-3% Annual Mortality Rate) Eduardo Medeiros MD on July 08, 2016 at 12:53 Board Certified Radiologist. This report was verified electronically.
--- NOTE | 2016-07-08 15:18 | EC ---
Study Study Date:07/08/2016 STUDY CONCLUSIONS SUMMARY - Left ventricle: The cavity size was dilated. Wall thickness was normal. Systolic function was severely reduced by visual assessment. The estimated ejection fraction was in the range of 20% to 25%. Diffuse hypokinesis. Cannot exclude apical thrombus. - Tricuspid valve: Mild regurgitation. - Pulmonary arteries: Systolic pressure was mildly increased. PA peak pressure: 42mm Hg (S). Recommendations: Limited apical imaging. May consider MORGAN or contrast-enhanced echocardiography to rule out apical thrombus. If LV function is below 40, please consider prescribing an ACEI or ARB or document rationale for non-use. PROCEDURE DATA STUDY STATUS: Elective. Procedure: Transthoracic echocardiography. Image quality was good. Scanning was performed from the parasternal, apical, and subcostal acoustic windows. Study completion: The patient tolerated the procedure well. Transthoracic echocardiography. M-mode, complete 2D, complete spectral Doppler, and color Doppler. Patient status: Inpatient. CARDIAC ANATOMY LEFT VENTRICLE: The cavity size was dilated. Wall thickness was normal. Systolic function was severely reduced by visual assessment. The estimated ejection fraction was in the range of 20% to 25%. Diffuse hypokinesis. Cannot exclude apical thrombus. AORTIC VALVE: Trileaflet; normal thickness leaflets. Doppler: Transvalvular velocity was within the normal range. There was no stenosis. No regurgitation. AORTA: Aortic root: The aortic root was normal in size. MITRAL VALVE: Structurally normal valve. Doppler: Transvalvular velocity was within the normal range. There was no evidence for stenosis. Trace to mild regurgitation. Mean gradient: 2mm Hg (D). LEFT ATRIUM: The atrium was normal in size. RIGHT VENTRICLE: The cavity size was normal. Wall thickness was normal. Pacer wire or catheter noted in right ventricle. PULMONIC VALVE: Doppler: Transvalvular velocity was within the normal range. There was no evidence for stenosis. No regurgitation. TRICUSPID VALVE: Structurally normal valve. Doppler: Transvalvular velocity was within the normal range. Mild regurgitation. PULMONARY ARTERY: Systolic pressure was mildly increased. RIGHT ATRIUM: The atrium was normal in size. PERICARDIUM: There was no pericardial effusion. SYSTEMIC VEINS: Inferior vena cava: The vessel was normal in size. BASIC MEASUREMENTS ADULT Normal Left ventricle LV internal dimension, ED, chordal level, *53.3 mm 43-52 PLAX LV internal dimension, ES, chordal level, *50 mm 23-38 PLAX Fractional shortening, chordal level, PLAX *6 % >29 LV posterior wall thickness, ED 8.43 mm IVS/LVPW ratio, ED *1.46 <1.3 Volume, ED, MOD, 1-plane 143 ml Volume, ES, MOD, 1-plane 113 ml Ejection fraction, MOD, 1-plane 21 % Stroke volume, MOD, 1-plane 30 ml Volume, ED, MOD, 2-plane 122 ml Volume, ES, MOD, 2-plane 86 ml Ejection fraction, MOD, 2-plane 30 % Stroke volume, MOD, 2-plane 36 ml Ventricular septum Septal thickness, ED 12.3 mm Aortic valve Leaflet separation 19 mm 15-26 Left atrium Anterior-posterior dimension 37 mm Right ventricle RV internal dimension, ED, PLAX 27.2 mm 19-38 BASIC MEASUREMENTS ADULT Normal Aortic valve Leaflet separation 19 mm 15-26 Aorta Root diameter, ED 33 mm 20-37 DOPPLER MEASUREMENTS ADULT Normal Main pulmonary artery Pressure, S *42 mm Hg =30 Aortic valve VTI, S 33.1 cm Mitral valve Peak E-wave velocity 58.7 cm/s Peak A-wave velocity 107 cm/s Mean velocity, D 57.4 cm/s Mean gradient, D 2 mm Hg Peak E/A ratio 0.5 Tricuspid valve Regurgitant peak velocity 281 cm/s Peak RV-RA gradient, S 32 mm Hg Maximal regurgitant velocity 281 cm/s Systemic veins Estimated CVP 10 mm Hg Right ventricle RV pressure, S *42 mm Hg <30 LEGEND: Mean values are shown as u=mean value. Asterisk (*) espitia values outside specified normal range. Amended Shayne Resendez [id number]
[2016-07-08] MEDS: ATORVASTATIN 40 MG TAB PO SCH (21:44)
[2016-07-09 04:00] VITALS: BP 97/56; PULSE 84; RESP 20; TEMP 98.4; O2SAT 97
[2016-07-09 08:00] VITALS: BP 115/68; PULSE 63; PULSE 80; RESP 16; TEMP 98; O2SAT 96
[2016-07-09] MEDS: APIXABAN 5 MG TABLET PO SCH ×2 (09:32→20:37)
[2016-07-09] MEDS: ASPIRIN EC 81 MG TABEC PO SCH (09:32)
[2016-07-09] MEDS: SODIUM CHLORIDE 0.9% FLUSH 5 ML FLUSH IVF PRN (09:32)
[2016-07-09] MEDS: AMIODARONE 200 MG TAB PO SCH ×3 (09:32→17:31)
[2016-07-09] MEDS: METOPROLOL TARTRATE 100 MG TAB PO SCH ×2 (09:32→20:38)
--- NOTE | 2016-07-09 11:19 | HHI.PR ---
Subjective Remarks Follow-up for AICD firing No overnight events, no chest pain, no further AICD firing. Afebrile. Discussed with Dr. Macias, stress test done yesterday. Objective Vitals Vital Signs Date Time Temp Pulse Resp B/P Pulse Ox O2 Delivery O2 Flow Rate FiO2 07/09/16 08:00 Room Air 07/09/16 08:00 98.0 80 16 115/68 96 07/09/16 04:00 98.4 84 20 97/56 97 07/08/16 21:45 Room Air 07/08/16 20:00 98.0 79 18 124/73 96 07/08/16 19:58 69 07/08/16 16:00 97.6 77 20 114/61 95 I/O 07/08/16 07/08/16 07/08/16 07/09/16 07/09/16 07/09/16 07:00 15:00 23:00 07:00 15:00 23:00 Intake Total 0 ml 480 ml 2 ml Output Total 700 ml Balance 0 ml 480 ml 2 ml -700 ml Intake Oral 0 ml 480 ml IV Total 0 ml 2 ml Output Urine Total 300 ml Stool Total 400 ml # Voids 2 4 # Bowel Movements 0 2 Result Diagram: 07/07/16 0520 07/08/16 0841 Imaging Last Impressions Myocardial Perfusion Scan Nuc Med 07/08/16 0000 Signed Impressions: Service Date/Time: Friday, July 08, 2016 10:53 - CONCLUSION: Questionable small reversible perfusion defect anteroseptal region and a fixed defect anterior wall midportion, small. No Global hypokinesis with ejection fraction of 36%% RISK CATEGORY: Intermediate (1-3%% Annual Mortality Rate) Eduardo Medeiros MD Chest X-Ray 07/06/16 1029 Signed Impressions: Service Date/Time: Wednesday, July 06, 2016 10:35 - CONCLUSION: No acute disease. Eduardo Medeiros MD Objective Remarks Not in distress, well-nourished, looks stated age PERRL, pink conjunctiva without injection, anicteric Nose without bleeding, airway patent, oropharynx clear Supple neck, no masses or thyromegaly, trachea midline Normal rate and irregular rhythm, 2/6 heart murmur. Clear to auscultation and symmetric bilaterally, normal respiratory effort. Normal bowel sounds, soft, non-tender, nondistended, no guarding. Colostomy bag in place. Extremities without clubbing, cyanosis, or edema. No rash of generalized distribution. Skin is warm and dry. AAO x3, no cranial nerve deficits, moves all 4 extremities, no focal neurologic deficits Normal mood, appropriate affect A/P Assessment and Plan This is very pleasant 71-year-old gentleman with a past medical history which includes: CAD status post CABG, CHF with ejection fraction around 25% status post AICD, Colon cancer status post descending colectomy, sigmoid polypectomy and diverting loop ileostomy, currently undergoing chemotherapy patient and sister is at bedside do not recall exact chemotherapy agents, Hypertension, Hyperlipidemia, Chronic renal failure, Diabetes diet controlled and Amputation of right second toe/ osteomyelitis. The patient was taking his garbage can on his AICD fired CHF status post AICD/ CAD Elevated troponin after AICD fire - Troponin maxed at 0.92, machine stone polisher apprentice following, status post Interrogation of the AICD reveals rapid atrial fibrillation , AICD rate limits have been adjusted. Further readjustment per cardiology. Oral amiodarone started and eliquis, keep oral amiodarone for 48 hours and if stable, may discharge per cardiology. Continue beta blockers and PARVIN inhibitor's. Stress test showed a questionable small reversible perfusion defect in the anteroseptal region, discussed with cardiology 07/09/16, likely no need for catheterization. TSH within normal limits, echocardiogram showed an ejection fraction of 20-25%. Continue telemetry and aspirin. Per cardiology, needs at least 48 hour of po amiodarone prior to discharge and the reprogramming his VT zone back to prior setting to avoid undetected VT at slower rates. May discharge today after cleared by cardiology and after reprogramming of AICD. 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 The patient is status post ascending colectomy, sigmoid polypectomy and a diverting loop ileostomy. He has noticed leakage from the ostomy site. He says there are plans for potential chemotherapy in the future. Ostomy nurse to assist with leaking ostomy bag. Chronic kidney disease avoid nephrotoxins -Acute on chronic renal failure, monitor. Creatinine is stable. Anemia Likely secondary to colon cancer as well as chronic kidney disease. CBC stable. Hypertension - Continue metoprolol. DVT prophylaxis SCDs, Eliquis. Discharge Planning Discharge today if cleared by cardiology and after reprogramming of AICD. Omar Roblero MD Jul 09, 2016 11:19
[2016-07-09 12:00] VITALS: BP 131/70; PULSE 60; RESP 18; TEMP 97.7; O2SAT 97
--- NOTE | 2016-07-09 14:29 | PD.CARD.PN ---
Subjective Subjective Remarks Feels well. Denies CP, dyspnea, palpitations, dizziness, nausea, abdominal pain. Objective Medications Item Value Date Time Amiodarone HCl 400 mg 07/07/16 1800 (Cordarone) TID/PO 07/09/16 1327 Aspirin 81 mg 07/07/16 0900 (Ecotrin Ec) DAILY/PO 07/09/16 0932 Atorvastatin 40 mg 07/06/16 2100 Calcium HS/PO 07/08/16 2144 (Lipitor) Metoprolol 100 mg 07/06/16 2100 Tartrate BID/PO 07/09/16 0932 (Lopressor) Apixaban 5 mg 07/06/16 2100 (Eliquis) BID/PO 07/09/16 0932 Vital Signs / I&O Vital Signs Date Time Temp Pulse Resp B/P Pulse Ox O2 Delivery O2 Flow Rate FiO2 07/09/16 08:00 Room Air 07/09/16 08:00 98.0 80 16 115/68 96 07/09/16 04:00 98.4 84 20 97/56 97 07/08/16 21:45 Room Air 07/08/16 20:00 98.0 79 18 124/73 96 07/08/16 19:58 69 07/08/16 16:00 97.6 77 20 114/61 95 I/O 07/08/16 07/08/16 07/08/16 07/09/16 07/09/16 07/09/16 07:00 15:00 23:00 07:00 15:00 23:00 Intake Total 0 ml 480 ml 2 ml Output Total 700 ml Balance 0 ml 480 ml 2 ml -700 ml Intake Oral 0 ml 480 ml IV Total 0 ml 2 ml Output Urine Total 300 ml Stool Total 400 ml # Voids 2 4 # Bowel Movements 0 2 Physical Exam GENERAL: Well developed, well nourished. No acute distress. HEENT: Jugular venous pressure is normal. CHEST: Lungs clear to auscultation bilaterally. Unlabored respiratory effort. CARDIAC: Regular rate and rhythm without S3, S4, or murmur. ABDOMEN: Soft, nontender, no hepatosplenomegaly. Bowel sounds present. EXTREMITIES: No clubbing, cyanosis, or edema. Assessment and Plan Problem List: (1) Paroxysmal atrial fibrillation Assessment and Plan: Notes reviewed. Patient's ICD shocks apparently felt due to atrial fib and rapid rates. No further shocks here in the hospital. Patient tolerating Amiodarone so far. Rec continued monitoring, observation until tomorrow. Discharge dose of Amiodarone should be 400 mg bid. Rec continue apixaban as his thromboembolic risk is high. (2) CAD (coronary artery disease) Assessment and Plan: Overall clinically stable. No recent angina symptoms. Suspect slight troponin elevations due to his tachyarrhythmias and ICD shocks. Questionable small area of anteroseptal ischemia on nuclear stress testing. Rec medical therapy. Cont daily aspirin, beta megan. (3) Ischemic cardiomyopathy Assessment and Plan: Compensated. Stable. No acute CHF. Cont beta megan. As I recall he has been kept off PARVIN-I therapy due to relative low BP's, mild CRI. Code Status full code Discussed Condition With patient Problem Qualifiers (1) CAD (coronary artery disease): Qualified Code: I25.10 - Coronary artery disease involving [place] coronary artery of [place] heart without angina pectoris Jon Macias MD Jul 09, 2016 14:29
[2016-07-09 16:00] VITALS: BP 119/65; PULSE 62; RESP 16; TEMP 97.9; O2SAT 96
[2016-07-09 20:00] VITALS: PULSE 61
[2016-07-09 20:29] VITALS: BP 117/69; PULSE 68; RESP 18; TEMP 98; O2SAT 97
[2016-07-09] MEDS: ATORVASTATIN 40 MG TAB PO SCH (20:38)
[2016-07-10 00:07] VITALS: BP 133/73; PULSE 60; RESP 16; TEMP 97.8; O2SAT 98
[2016-07-10 04:52] VITALS: BP 130/68; PULSE 60; RESP 18; TEMP 97.9; O2SAT 97
[2016-07-10] MEDS: APIXABAN 5 MG TABLET PO SCH (07:50)
[2016-07-10] MEDS: SODIUM CHLORIDE 0.9% FLUSH 5 ML FLUSH IVF PRN (07:50)
[2016-07-10] MEDS: AMIODARONE 200 MG TAB PO SCH ×2 (07:50→13:00)
[2016-07-10] MEDS: ASPIRIN EC 81 MG TABEC PO SCH (07:50)
[2016-07-10] MEDS: METOPROLOL TARTRATE 100 MG TAB PO SCH (07:50)
[2016-07-10 08:00] VITALS: BP_SYST 132; BP_DIAS 73; BP_DIAS 97; PULSE 70; RESP 20; TEMP 94.5; TEMP 99.5; O2SAT 97
--- NOTE | 2016-07-10 10:46 | HHI.PR ---
Subjective Remarks Follow-up AICD firing. He is doing okay and wants to go home. Denies chest pain, shortness of breath and palpitations. Discussed with RN, cardiology has cleared the patient for discharge aware of echocardiogram results with possible apical thrombus patient on Eliquis Objective Vitals Vital Signs Date Time Temp Pulse Resp B/P Pulse Ox O2 Delivery O2 Flow Rate FiO2 07/10/16 07:46 Room Air 07/10/16 04:52 97.9 60 18 130/68 97 07/10/16 00:07 97.8 60 16 133/73 98 07/09/16 21:00 Room Air 07/09/16 20:29 98.0 68 18 117/69 97 07/09/16 20:00 61 07/09/16 16:00 97.9 62 16 119/65 96 07/09/16 12:00 97.7 60 18 131/70 97 I/O 07/09/16 07/09/16 07/09/16 07/10/16 07/10/16 07/10/16 07:00 15:00 23:00 07:00 15:00 23:00 Intake Total 360 ml 620 ml 600 ml Output Total 700 ml 200 ml 720 ml 550 ml Balance -700 ml 160 ml -100 ml 50 ml Intake Oral 360 ml 620 ml 600 ml Output Urine Total 300 ml 200 ml 720 ml 550 ml Stool Total 400 ml # Bowel Movements 100 0 1 Result Diagram: 07/07/16 0520 07/08/16 0841 Objective Remarks GENERAL: Well-developed, well-nourished in no distress SKIN: Warm and dry. HEAD: Atraumatic. Normocephalic. EYES: Pupils equal and round. No scleral icterus. No injection or drainage. ENT: No nasal bleeding or discharge. Mucous membranes pink and moist. NECK: Trachea midline. No JVD. CARDIOVASCULAR: Regular rate and rhythm. RESPIRATORY: No accessory muscle use. Clear to auscultation. Breath sounds equal bilaterally. GASTROINTESTINAL: Abdomen soft, non-tender, nondistended. Colostomy in place MUSCULOSKELETAL: Extremities without clubbing, cyanosis, or edema. No obvious deformities. NEUROLOGICAL: Awake and alert. No obvious cranial nerve deficits. Motor grossly within normal limits. Five out of 5 muscle strength in the arms and legs. Normal speech. PSYCHIATRIC: Appropriate mood and affect; insight and judgment normal. A/P Assessment and Plan This is very pleasant 71-year-old gentleman with a past medical history which includes: CAD status post CABG, CHF with ejection fraction around 25% status post AICD, Colon cancer status post descending colectomy, sigmoid polypectomy and diverting loop ileostomy, currently undergoing chemotherapy patient and sister is at bedside do not recall exact chemotherapy agents, Hypertension, Hyperlipidemia, Chronic renal failure, Diabetes diet controlled and Amputation of right second toe/ osteomyelitis. The patient was taking his garbage out when his AICD fired CHF status post AICD/ CAD Elevated troponin after AICD fire - Troponin maxed at 0.92, pediatric intensive physician following, status post Interrogation of the AICD reveals rapid atrial fibrillation , AICD rate limits have been adjusted. Further readjustment per cardiology. Oral amiodarone and eliquis, keep oral amiodarone for 48 hours and if stable, may discharge per cardiology. Continue beta blockers and PARVIN inhibitor's. Stress test showed a questionable small reversible perfusion defect in the anteroseptal region, discussed with cardiology 07/09/16, likely no need for catheterization. TSH within normal limits, echocardiogram showed an ejection fraction of 20-25%. Continue telemetry and aspirin. Per cardiology, needs at least 48 hour of po amiodarone prior to discharge and the reprogramming his VT zone back to prior setting to avoid undetected VT at slower rates. May discharge today after cleared by cardiology and after reprogramming of AICD. 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 The patient is status post ascending colectomy, sigmoid polypectomy and a diverting loop ileostomy. He has noticed leakage from the ostomy site. He says there are plans for potential chemotherapy in the future. Ostomy nurse to assist with leaking ostomy bag. Chronic kidney disease avoid nephrotoxins -Acute on chronic renal failure, monitor. Creatinine is stable. Anemia Likely secondary to colon cancer as well as chronic kidney disease. CBC stable. Hypertension - Continue metoprolol. DVT prophylaxis SCDs, Eliquis. Discharge Planning Stable for discharge Jean Rosas MD Jul 10, 2016 10:46
[2016-07-10] MEDS ORDERED: AMIO200T PO (10:49)
[2016-07-10] MEDS ORDERED: APIX5TAB PO (10:49)
--- NOTE | 2016-07-10 10:50 | HHI.DCPOC ---
Discharge Care Plan Diagnosis: (1) Ischemic cardiomyopathy (2) Elevated troponin Your Health Problems Are: Difficulty with ADL Exercise Tolerance Goals to Promote Your Health * To prevent worsening of your condition and complications * To maintain your health at the optimal level Directions to Meet Your Goals Take your medications as prescribed Follow your dietary instruction Follow activity as directed Keep your appointments as scheduled Take your immunizations and boosters as scheduled If your symptoms worsen call your PCP, if no PCP go to Urgent Care Center or Emergency Room Smoking is Dangerous to Your Health. Avoid second hand smoke Call the 24-hour hour crisis hotline for domestic abuse at Jean Rosas MD Jul 10, 2016 10:50
--- NOTE | 2016-07-10 10:52 | HHI.DS ---
Discharge Summary Admission Date Jul 06, 2016 at 14:31 Discharge Date: Jul 10, 2016 Admitting Diagnosis ELEVATED TROP (1) CAD (coronary artery disease) ICD Code: I25.10 Diagnosis: Principal (2) Ischemic cardiomyopathy ICD Code: I25.5 Diagnosis: Principal (3) Paroxysmal atrial fibrillation ICD Code: I48.0 Diagnosis: Principal (4) Elevated troponin ICD Code: R79.89 Diagnosis: Principal Procedures none Brief History - From Admission This is very pleasant 71-year-old gentleman with a past medical history which includes: CAD status post CABG, CHF with ejection fraction around 25% status post AICD, Colon cancer status post descending colectomy, sigmoid polypectomy and diverting loop ileostomy, currently undergoing chemotherapy patient and sister is at bedside do not recall exact chemotherapy agents, Hypertension, Hyperlipidemia, Chronic renal failure, Diabetes diet controlled and Amputation of right second toe/ osteomyelitis. The patient was taking his garbage can on his AICD fired there her fourth proceeded to the emergency department for further evaluation and treatment. Patient reports that he did have pain when the AICD fired but other than that denies chest pain. Patient denies loss of consciousness or feeling dizzy or lightheaded prior to event. Patient reports he feels, "pretty well now." And offers no specific complaints. Interrogation of the AICD reveals rapid atrial rhythm AICD rate limits have been adjusted. Evaluation of EMS monitoring strips as well as EKGs by myself and Dr. Roblero- patient did have a wide-complex tachycardia. CBC/BMP: 07/07/16 0520 07/08/16 0841 Significant Findings Laboratory Tests Test 07/08/16 08:41 Estimat Glomerular Filtration 55 ML/MIN (>89) Rate Total Bilirubin 1.3 MG/DL (0.2-1.0) Albumin 3.3 GM/DL (3.4-5.0) Imaging Last Impressions Myocardial Perfusion Scan Nuc Med 07/08/16 0000 Signed Impressions: Service Date/Time: Friday, July 08, 2016 10:53 - CONCLUSION: Questionable small reversible perfusion defect anteroseptal region and a fixed defect anterior wall midportion, small. No Global hypokinesis with ejection fraction of 36%% RISK CATEGORY: Intermediate (1-3%% Annual Mortality Rate) Eduardo Medeiros MD Chest X-Ray 07/06/16 1029 Signed Impressions: Service Date/Time: Friday, July 06, 2016 10:35 - CONCLUSION: No acute disease. Eduardo Medeiros MD PE at Discharge GENERAL: Well-developed, well-nourished in no distress SKIN: Warm and dry. HEAD: Atraumatic. Normocephalic. EYES: Pupils equal and round. No scleral icterus. No injection or drainage. ENT: No nasal bleeding or discharge. Mucous membranes pink and moist. NECK: Trachea midline. No JVD. CARDIOVASCULAR: Regular rate and rhythm. RESPIRATORY: No accessory muscle use. Clear to auscultation. Breath sounds equal bilaterally. GASTROINTESTINAL: Abdomen soft, non-tender, nondistended. Colostomy in place MUSCULOSKELETAL: Extremities without clubbing, cyanosis, or edema. No obvious deformities. NEUROLOGICAL: Awake and alert. No obvious cranial nerve deficits. Motor grossly within normal limits. Five out of 5 muscle strength in the arms and legs. Normal speech. PSYCHIATRIC: Appropriate mood and affect; insight and judgment normal. Hospital Course This is very pleasant 71-year-old gentleman with a past medical history which includes: CAD status post CABG, CHF with ejection fraction around 25% status post AICD, Colon cancer status post descending colectomy, sigmoid polypectomy and diverting loop ileostomy, currently undergoing chemotherapy patient and sister is at bedside do not recall exact chemotherapy agents, Hypertension, Hyperlipidemia, Chronic renal failure, Diabetes diet controlled and Amputation of right second toe/ osteomyelitis. The patient was taking his garbage out when his AICD fired CHF status post AICD/ CAD Elevated troponin after AICD fire - Troponin maxed at 0.92, [employer] representative following, status post Interrogation of the AICD reveals rapid atrial fibrillation , AICD rate limits have been adjusted. Further readjustment per cardiology. Oral amiodarone and eliquis, keep oral amiodarone for 48 hours and if stable, may discharge per cardiology. Continue beta blockers and consider PARVIN inhibitor(per cardiology not started due to low BP and CKD) Stress test showed a questionable small reversible perfusion defect in the anteroseptal region, discussed with cardiology 07/09/16 , likely no need for catheterization. TSH within normal limits, echocardiogram showed an ejection fraction of 20-25%. Continue telemetry and aspirin. Per cardiology, needs at least 48 hour of po amiodarone prior to discharge and the reprogramming his VT zone back to prior setting to avoid undetected VT at slower rates. May discharge today after cleared by cardiology and after reprogramming of AICD. 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 The patient is status post ascending colectomy, sigmoid polypectomy and a diverting loop ileostomy. He has noticed leakage from the ostomy site. He says there are plans for potential chemotherapy in the future. Ostomy nurse to assist with leaking ostomy bag. Chronic kidney disease avoid nephrotoxins -Acute on chronic renal failure, monitor. Creatinine is stable. Anemia Likely secondary to colon cancer as well as chronic kidney disease. CBC stable. Hypertension - Continue metoprolol. DVT prophylaxis SCDs, Eliquis. Pt Condition on Discharge: Stable Discharge Disposition: Discharge Home Discharge Time: <= 30 minutes Discharge Instructions DIET: Follow Instructions for: Heart Healthy Diet, Diabetic Diet Activities you can perform: Regular-No Restrictions Activities to Avoid: Driving Follow up Referrals: Cardiology - 1 Week PCP Follow-up - 2-3 Days New Medications: Amiodarone (Amiodarone) 200 Mg Tab 400 MG PO BID Regulate Heart Beat #60 TAB Apixaban (Eliquis) 5 Mg Tab 5 MG PO BID Regulate Heart Beat #60 TAB Continued Medications: Aspirin DR (Aspirin EC) 81 Mg Tabdr 81 MG PO DAILY Ref 0 TAB Atorvastatin (Atorvastatin) 40 Mg Tab 40 MG PO HS Cholesterol Management #30 Ref 0 TAB Metoprolol Tartrate (Metoprolol Tartrate) 100 Mg Tab 100 MG PO BID #60 Ref 0 TAB Jean Rosas MD Jul 10, 2016 10:52
--- NOTE | 2016-07-10 14:37 | PD.CARD.PN ---
Subjective Subjective Remarks Denies CP, dyspnea, dizziness, nausea, palpitations. Objective Medications Item Value Date Time Amiodarone HCl 400 mg 07/07/16 1800 (Cordarone) TID/PO 07/10/16 1300 Aspirin 81 mg 07/07/16 0900 (Ecotrin Ec) DAILY/PO 07/10/16 0750 Atorvastatin 40 mg 07/06/16 2100 Calcium HS/PO 07/09/162037 (Lipitor) Metoprolol 100 mg 07/06/16 2100 Tartrate BID/PO 07/10/16 0750 (Lopressor) Apixaban 5 mg 07/06/16 2100 (Eliquis) BID/PO 07/10/16 0750 Vital Signs / I&O Vital Signs Date Time Temp Pulse Resp B/P Pulse Ox O2 Delivery O2 Flow Rate FiO2 07/10/16 08:00 99.5 70 20 132/73 97 07/10/16 07:46 Room Air 07/10/16 04:52 97.9 60 18 130/68 97 07/10/16 00:07 97.8 60 16 133/73 98 07/09/16 21:00 Room Air 07/09/16 20:29 98.0 68 18 117/69 97 07/09/16 20:00 61 07/09/16 16:00 97.9 62 16 119/65 96 I/O 07/09/16 07/09/16 07/09/16 07/10/16 07/10/16 07/10/16 07:00 15:00 23:00 07:00 15:00 23:00 Intake Total 360 ml 620 ml 600 ml Output Total 700 ml 200 ml 720 ml 550 ml Balance -700 ml 160 ml -100 ml 50 ml Intake Oral 360 ml 620 ml 600 ml Output Urine Total 300 ml 200 ml 720 ml 550 ml Stool Total 400 ml # Bowel Movements 100 0 1 Physical Exam GENERAL: Well developed, well nourished. No acute distress. HEENT: Jugular venous pressure is normal. CHEST: Lungs clear to auscultation bilaterally. Unlabored respiratory effort. CARDIAC: Regular rate and rhythm without S3, S4, or murmur. ABDOMEN: Soft, nontender, no hepatosplenomegaly. Bowel sounds present. EXTREMITIES: No clubbing, cyanosis, or edema. Assessment and Plan Problem List: (1) Paroxysmal atrial fibrillation Assessment and Plan: No further atrial fibrillation. No further shocks here in the hospital. Patient tolerating Amiodarone so far. Rec OK to discharge home today. Discharge dose of Amiodarone should be 400 mg bid. Rec continue apixaban as his thromboembolic risk is high. (2) CAD (coronary artery disease) Assessment and Plan: Overall clinically stable. No recent angina symptoms. Suspect slight troponin elevations due to his tachyarrhythmias and ICD shocks. Questionable small area of anteroseptal ischemia on nuclear stress testing. Rec medical therapy. Cont daily aspirin, beta megan. (3) Ischemic cardiomyopathy Assessment and Plan: Compensated. Stable. No acute CHF. Cont beta megan. As I recall he has been kept off PARVIN-I therapy due to relative low BP's, mild CRI. (4) Left ventricular apical thrombus following LA Assessment and Plan: Echo images reviewed. Overall doubt there is apical thrombus. If there is, it is calcified and likely organized. To continue anticoagulation therapy as for his atrial fibrillation. Code Status full code Discussed Condition With patient Problem Qualifiers (1) CAD (coronary artery disease): Qualified Code: I25.10 - Coronary artery disease involving [place] coronary artery of [place] heart without angina pectoris Jon Macias MD Jul 10, 2016 14:36
[2016-10-29] MEDS ORDERED: CHOL5000 PO (09:40)
[2016-10-29] MEDS ORDERED: MULTTAB67 PO (09:40)
[2016-10-29] MEDS ORDERED: VITA100021 SL (09:40)
== END 2016-07-10 17:03 | disposition home or self-care (01) | DRG 309 ==
LOC: NEPC 10:19 → NEDA 14:17 → INTOOBSV 14:31 → OBSVTOIN 14:31 → UNDOADMOB 14:31 → NEDA 15:20 → N04A 15:20 → OBSVTOIN 07-07 09:58 → UNDODISOB 07-10 17:03
PROVIDERS: ADMIT Internal Medicine; ATTEND Internal Medicine
DX: I48.0 Paroxysmal atrial fibrillation (principal); N17.9 Acute kidney failure, unspecified; E11.22 Type 2 diabetes mellitus with diabetic chronic kidney disease; C18.9 Malignant neoplasm of colon, unspecified; I50.9 Heart failure, unspecified; I13.0 Hypertensive heart and chronic kidney disease with heart failure and stage 1 through stage 4 chronic kidney disease, or unspecified chronic kidney disease; E78.5 Hyperlipidemia, unspecified; D63.1 Anemia in chronic kidney disease; D63.0 Anemia in neoplastic disease; I25.10 Atherosclerotic heart disease of native coronary artery without angina pectoris; R74.8 Abnormal levels of other serum enzymes; N18.9 Chronic kidney disease, unspecified; I25.5 Ischemic cardiomyopathy; Z93.2 Ileostomy status; Z89.421 Acquired absence of other right toe(s); Z95.1 Presence of aortocoronary bypass graft; Z95.810 Presence of automatic (implantable) cardiac defibrillator
CPT/HCPCS: 71010; 78452; 80048; 80053; 82550; 82552; 82948; 83735; 84443; 84484; 85025; 85610; 85730; 93005; 93017; 93306; 96374; A9502; J0282; J2785; J7060

== ENCOUNTER 2016-10-28 11:58 | Day surgery (SDC) | payer MEDICARE, OTHER ==
[~2016-10-28] VITALS: Ht 180.3 cm; Wt 73.7 kg
[~2016-10-28 11:58] MED LIST changes: -1-ME1LIQ PO; +AMIO200T PO; +APIX5TAB PO; -ATOR20TA PO; +ATOR40TA16 PO; -LEVA500T PO
[2016-10-28] MEDS ORDERED: LIDOCAINE 0.5%/EPINEPHrine 1:200,000 SOLN 50 ML VIAL ONE (12:13)
[2016-10-28 13:10] VITALS: BP 129/78; PULSE 85; RESP 20; TEMP 97.9; O2SAT 99
[2016-10-28] MEDS ORDERED: METOPROLOL TARTRATE 25 MG TAB PO PRN (13:15)
[2016-10-28] MEDS ORDERED: ceFAZolin 2 GM PREMIX 50 ML IV SCH (13:15)
[2016-10-28] MEDS ORDERED: METRONIDAZOLE 500 MG/100 ML ISONTONIC SOLN IV SCH (13:15)
[2016-10-28] MEDS ORDERED: SODIUM CHLORID 0.9% 500 ML IV PRN (13:15)
[2016-10-28] MEDS ORDERED: POVIDONE IODINE 5% (ANTISEPSIS KIT) 4 APPLICATIONS EACH NARE PRN (13:15)
[2016-10-28] MEDS ORDERED: DEXT 5%-NACL 0.9% 1000 ML INJ 1,000 ML IV SCH (13:15)
[2016-10-28] MEDS ORDERED: LACTATED RINGER'S 1000 ML IV PRN (13:15)
[2016-10-28] MEDS ORDERED: INSULIN HUMAN REGULAR 1,000 UNITS/10 ML VIAL SQ PRN (13:15)
[2016-10-28] MEDS ORDERED: CHLORHEXIDINE GLUCONATE 2 % 1 PACK (2 CLOTHS) TOPICAL PRN (13:15)
[2016-10-29] MEDS ORDERED: VITA100021 SL (09:40)
[2016-10-29] MEDS ORDERED: MULTTAB67 PO (09:40)
[2016-10-29] MEDS ORDERED: CHOL5000 PO (09:40)
== END 2016-10-28 14:35 | disposition home or self-care (01) ==
LOC: HSDI 11:58 → UNDOADMIN 11:58 → HSDC 11:58 → EDSTATUS 14:00 → HSDC 14:35
PROVIDERS: ATTEND Colon & Rectal Surgery
DX: C18.2 Malignant neoplasm of ascending colon (principal); Z53.09 Procedure and treatment not carried out because of other contraindication
CPT/HCPCS: 86850; 86900; 86901; G0463; J7120; 99211

== ENCOUNTER 2016-10-29 13:29 | Inpatient (IN) | payer OTHER, MEDICARE ==
[~2016-10-29] VITALS: Ht 180.3 cm; Wt 72.9 kg
[~2016-10-29 13:29] MED LIST changes: -AMIO200T PO; +CHOL5000 PO; +MULTTAB67 PO; +VITA100021 SL
[2016-10-30] MEDS ORDERED: POVIDONE IODINE 5% (ANTISEPSIS KIT) 4 APPLICATIONS EACH NARE PRN ×2 (05:45→09:15)
[2016-10-30] MEDS ORDERED: ceFAZolin 2 GM PREMIX 50 ML IV SCH (05:45)
[2016-10-30] MEDS ORDERED: CHLORHEXIDINE GLUCONATE 2 % 1 PACK (2 CLOTHS) TOPICAL PRN ×2 (05:45→09:15)
[2016-10-30] MEDS ORDERED: INSULIN HUMAN REGULAR 1,000 UNITS/10 ML VIAL SQ PRN ×2 (05:45→09:15)
[2016-10-30] MEDS ORDERED: LACTATED RINGER'S 1000 ML IV PRN ×2 (05:45→09:15)
[2016-10-30] MEDS ORDERED: METRONIDAZOLE 500 MG/100 ML ISONTONIC SOLN IV SCH (05:45)
[2016-10-30] MEDS ORDERED: METOPROLOL TARTRATE 25 MG TAB PO PRN ×2 (05:45→09:15)
[2016-10-30] MEDS ORDERED: SODIUM CHLORID 0.9% 500 ML IV PRN ×2 (05:45→09:15)
[2016-10-30 05:56] VITALS: BP 143/82; PULSE 60; RESP 20; TEMP 97.5; O2SAT 100
[2016-10-30] MEDS ORDERED: LIDOCAINE 0.5%/EPINEPHrine 1:200,000 SOLN 50 ML VIAL ONE (06:11)
[2016-10-30] MEDS ORDERED: ACETAMINOPHEN 1000 MG/100 ML VIAL IV ONE (06:53)
[2016-10-30] MEDS ORDERED: fentaNYL CITRATE 250 MCG/5 ML AMP ONE (06:53)
[2016-10-30] MEDS ORDERED: MIDAZOLAM HCL 2 MG/2 ML VIAL ONE (06:53)
[2016-10-30] MEDS ORDERED: FAMOTIDINE 20 MG/2 ML VIAL ONE (06:53)
[2016-10-30] MEDS ORDERED: ONDANSETRON HCL 4 MG/2 ML VIAL ONE (06:54)
[2016-10-30] MEDS ORDERED: KETAMINE HCL 500 MG/5 ML VIAL ONE (07:00)
[2016-10-30] MEDS ORDERED: ONDANSETRON HCL 4 MG/2 ML VIAL IV PRN (08:15)
[2016-10-30] MEDS ORDERED: Post-op Orders (for Pharmacy) MISC XX ONE (08:15)
[2016-10-30] MEDS ORDERED: ACETAMINOPHEN 325 MG TAB PO PRN (08:15)
[2016-10-30] MEDS ORDERED: POTASSIUM CHLOR 20 MEQ PREMIX 100 ML IV PRN (08:15)
[2016-10-30] MEDS ORDERED: SODIUM CHLORIDE 0.9% FLUSH 5 ML FLUSH IVF PRN (08:15)
[2016-10-30] MEDS ORDERED: BENZOCAINE 6 MG/MENTHOL 10 MG LOZENGE BUCCAL PRN (08:15)
[2016-10-30] MEDS ORDERED: KETOROLAC TROMETHAMINE 30 MG/ML (IVP) VIAL IVP PRN (08:15)
[2016-10-30] MEDS ORDERED: diphenhydrAMINE HCL 50 MG/ML VIAL IV PRN (08:15)
[2016-10-30] MEDS ORDERED: POTASSIUM CHLOR 40 MEQ PREMIX 100 ML IV PRN (08:15)
[2016-10-30] MEDS ORDERED: ACETAMINOPHEN/HYDROcodone 325 MG/5 MG TAB PO PRN ×2 (08:15)
[2016-10-30] MEDS ORDERED: ENALAPRILAT 2.5 MG/2 ML VIAL IV PRN (08:15)
[2016-10-30] MEDS ORDERED: NALOXONE HCL 0.4 MG/ML AMP IV PRN (08:15)
[2016-10-30] MEDS ORDERED: *ONDANSETRON 4 MG VIAL PERIprocedural Use ONLY ONE (08:25)
[2016-10-30 08:46] LABS: AUTOMATED NEUTROPHIL # 7.7 TH/MM3 (1.8-7.7); BASOPHIL # 0.1 TH/MM3 (0-0.2); BASOPHIL % 0.6 % (0.0-2.0); EOSINOPHIL # 0.1 TH/MM3 (0-0.4); EOSINOPHIL % 1.4 % (0.0-4.0); HEMATOCRIT 37.8 % (39.0-51.0); HEMO FLAGS DIFF FINAL; LYMPH % 10.7 % (9.0-44.0); MEAN CELL VOLUME 86.8 FL (80.0-100.0); MEAN CORPUSCULAR HEMOGLOBIN 29.4 PG (27.0-34.0); MEAN CORPUSCULAR HGB CONC 33.8 % (32.0-36.0); MONO % 5.8 % (0.0-8.0); NEUT % 81.5 % (16.0-70.0); PLATELET COUNT 190 TH/MM3 (150-450); RED BLOOD COUNT 4.35 MIL/MM3 (4.50-5.90); WHITE BLOOD COUNT 9.4 TH/MM3 (4.0-11.0)
[2016-10-30] MEDS ORDERED: *ENALAPRILAT 1.25 MG/ML VIAL PERIprocedural Use ONLY ONE (08:51)
[2016-10-30] MEDS: ENALAPRILAT 1.25 MG/ML VIAL IV PRN (08:53)
[2016-10-30 09:02] LABS: BICARBONATE 15.2 MEQ/L (21.0-32.0); POTASSIUM 4.7 MEQ/L (3.5-5.1)
[2016-10-30] MEDS: D5-NS + KCL 20 MEQ INJ 1,000 ML IV SCH ×3 (09:02→20:37)
[2016-10-30] MEDS: MORPHINE SULFATE 30 MG/30 ML PCA IV SCH (09:04)
[2016-10-30] MEDS: SODIUM CHLORIDE 0.9% FLUSH 5 ML FLUSH IVF SCH ×2 (09:39→20:36)
[2016-10-30] MEDS: PANTOPRAZOLE SODIUM 40 MG VIAL IVP SCH (09:39)
[2016-10-30] MEDS ORDERED: ePHEDrine/NS 25 MG/5 ML SYR IV ONE (12:00)
[2016-10-30] MEDS: PCA - TOTAL MG MORPHINE DELIVERED PER SHIFT SCH ×2 (14:00→20:37)
[2016-10-30] MEDS: DEXT 5%-NACL 0.9% 1000 ML INJ 1,000 ML IV SCH ×2 (14:00→20:38)
[2016-10-30] MEDS: metroNIDAZOLE 500 MG INJ 100 ML IV SCH ×2 (14:38→22:40)
[2016-10-30 16:06] VITALS: O2SAT 100
[2016-10-30 20:00] VITALS: BP 112/57; PULSE 70; RESP 17; TEMP 96.7; O2SAT 97
[2016-10-31] VITALS (8 sets, daily range): BP systolic 114–153; BP diastolic 55–75; PULSE 83–123; RESP 16–18; TEMP 95.3–97.6; O2SAT 96–99
[2016-10-31 05:14] LABS: AUTOMATED NEUTROPHIL # 11.4 TH/MM3 (1.8-7.7); BASOPHIL % 0.3 % (0.0-2.0); EOSINOPHIL % 0.1 % (0.0-4.0); HEMATOCRIT 33.8 % (39.0-51.0); HEMO FLAGS DIFF FINAL; LYMPHOCYTE # 0.5 TH/MM3 (1.0-4.8); MEAN CELL VOLUME 88.2 FL (80.0-100.0); MEAN CORPUSCULAR HGB CONC 32.9 % (32.0-36.0); MONO % 5.5 % (0.0-8.0); NEUT % 90.1 % (16.0-70.0); PLATELET COUNT 163 TH/MM3 (150-450); RED BLOOD COUNT 3.84 MIL/MM3 (4.50-5.90); RED CELL DISTRIBUTION WIDTH 14.1 % (11.6-17.2); WHITE BLOOD COUNT 12.7 TH/MM3 (4.0-11.0)
[2016-10-31 05:41] LABS: BICARBONATE 15.6 MEQ/L (21.0-32.0)
[2016-10-31] MEDS: D5-NS + KCL 20 MEQ INJ 1,000 ML IV SCH ×5 (05:56→20:59)
[2016-10-31] MEDS: PCA - TOTAL MG MORPHINE DELIVERED PER SHIFT SCH ×3 (05:56→22:00)
[2016-10-31] MEDS: DEXT 5%-NACL 0.9% 1000 ML INJ 1,000 ML IV SCH ×3 (05:57→20:55)
[2016-10-31] MEDS: metroNIDAZOLE 500 MG INJ 100 ML IV SCH (06:00)
[2016-10-31] MEDS: HEPARIN SODIUM - SQ 10,000 UNITS/ML VIAL SQ SCH ×2 (07:02→18:00)
[2016-10-31] MEDS: SODIUM CHLORIDE 0.9% FLUSH 5 ML FLUSH IVF SCH ×2 (08:56→20:54)
[2016-10-31] MEDS: PANTOPRAZOLE SODIUM 40 MG VIAL IVP SCH (08:56)
--- NOTE | 2016-10-31 18:02 | HHI.PR ---
Subjective Remarks POD#1 s/p ileostomy closure comfortable Objective Vital Signs Date Time Temp Pulse Resp B/P Pulse Ox O2 Delivery O2 Flow Rate FiO2 10/31/16 16:00 97.6 98 16 132/64 98 10/31/16 12:00 95.3 102 16 114/60 97 10/31/16 08:52 96 21 10/31/16 08:00 95.4 104 16 118/64 99 10/31/16 05:56 18 10/31/16 04:00 97.2 95 17 128/57 99 10/31/16 00:00 96.1 83 17 116/55 99 10/30/16 20:37 18 10/30/16 20:00 96.7 70 17 112/57 97 I/O 10/30/16 10/30/16 10/30/16 10/31/16 10/31/16 10/31/16 07:00 15:00 23:00 07:00 15:00 23:00 Intake Total 1592 ml 1133 ml 1547 ml 1378 ml Output Total 170 ml 300 ml 500 ml 300 ml Balance 1422 ml 833 ml 1047 ml 1078 ml Intake Oral 240 ml 240 ml 300 ml IV Total 792 ml 893 ml 1307 ml 1078 ml Other 800 ml Output Urine Total 150 ml 300 ml 500 ml 300 ml Estimated Blood Loss 20 ml # Bowel Movements 0 Result Diagram: 10/31/1643910/31/16439 Objective Remarks Abdomen soft, nondistended, tender Dressing c/d/i Assessment and Plan Assessment and Plan Advance diet Mobilize Decrease IVF Hillary Porter MD Oct 31, 2016 18:02
[2016-10-31] MEDS: ENALAPRILAT 1.25 MG/ML VIAL IV PRN (22:25)
[2016-11-01] VITALS (8 sets, daily range): BP systolic 118–168; BP diastolic 66–89; PULSE 96–125; RESP 17–22; TEMP 95.5–98.4; O2SAT 96–98
[2016-11-01] MEDS: DEXT 5%-NACL 0.9% 1000 ML INJ 1,000 ML IV SCH ×3 (04:41→20:06)
[2016-11-01 05:02] LABS: AUTOMATED NEUTROPHIL # 8.9 TH/MM3 (1.8-7.7); BASOPHIL % 0.5 % (0.0-2.0); EOSINOPHIL # 0.1 TH/MM3 (0-0.4); EOSINOPHIL % 0.9 % (0.0-4.0); HEMATOCRIT 30.5 % (39.0-51.0); HEMO FLAGS DIFF FINAL; LYMPH % 3.3 % (9.0-44.0); LYMPHOCYTE # 0.3 TH/MM3 (1.0-4.8); MEAN CELL VOLUME 87.7 FL (80.0-100.0); MEAN CORPUSCULAR HEMOGLOBIN 29.6 PG (27.0-34.0); MEAN CORPUSCULAR HGB CONC 33.8 % (32.0-36.0); MONO % 6.4 % (0.0-8.0); NEUT % 88.9 % (16.0-70.0); PLATELET COUNT 142 TH/MM3 (150-450); RED BLOOD COUNT 3.48 MIL/MM3 (4.50-5.90); RED CELL DISTRIBUTION WIDTH 14.5 % (11.6-17.2)
[2016-11-01] MEDS: HEPARIN SODIUM - SQ 10,000 UNITS/ML VIAL SQ SCH ×2 (05:23→18:03)
[2016-11-01] MEDS: PCA - TOTAL MG MORPHINE DELIVERED PER SHIFT SCH ×3 (05:55→22:00)
--- NOTE | 2016-11-01 08:57 | HHI.PR ---
Subjective Remarks POD#2 s/p ileostomy closure comfortable, hungry Objective Vital Signs Date Time Temp Pulse Resp B/P Pulse Ox O2 Delivery O2 Flow Rate FiO2 11/01/16 08:00 98.2 111 20 118/69 97 11/01/16 05:55 14 11/01/16 04:00 97.7 112 17 118/66 97 11/01/16 00:37 116 133/69 11/01/16 00:00 96.2 125 18 168/89 97 10/31/16 21:24 97 Nasal Cannula 21 10/31/16 20:00 96.3 123 18 153/75 97 10/31/16 16:00 97.6 98 16 132/64 98 10/31/16 12:00 95.3 102 16 114/60 97 I/O 10/31/16 10/31/16 10/31/16 11/01/16 11/01/16 11/01/16 07:00 15:00 23:00 07:00 15:00 23:00 Intake Total 1547 ml 1378 ml 1146 ml 628 ml Output Total 500 ml 300 ml 600 ml Balance 1047 ml 1078 ml 1146 ml 28 ml Intake Oral 240 ml 300 ml 240 ml 240 ml IV Total 1307 ml 1078 ml 906 ml 388 ml Output Urine Total 500 ml 300 ml 600 ml Bladder Scan Volume Amount 760 ml # Voids 0 # Bowel Movements 0 Result Diagram: 11/01/16 0327 11/01/16 0327 Objective Remarks Abdomen soft, nondistended, tender wound with serosanguinous drainage, no erythema Assessment and Plan Assessment and Plan HOme today Hillary Porter MD Nov 01, 2016 08:57
[2016-11-01] MEDS ORDERED: HYDR-3516 PO (09:00)
[2016-11-01] MEDS: SODIUM CHLORIDE 0.9% FLUSH 5 ML FLUSH IVF SCH ×2 (09:00→20:06)
[2016-11-01] MEDS: PANTOPRAZOLE SODIUM 40 MG VIAL IVP SCH (09:39)
--- NOTE | 2016-11-01 10:19 | MP ---
cc: FREEMAN PORTER MD, JON C. M.D. DATE OF SURGERY: 10/30/2016 PREOPERATIVE DIAGNOSIS History of colon cancer. POSTOPERATIVE DIAGNOSIS History of colon cancer. PROCEDURE Resection with reanastomosis of ileostomy. SURGEON Dominick Porter ANESTHESIA General per ET tube. ESTIMATED BLOOD LOSS 50 cc. OPERATIVE INDICATION The patient is a 71-year-old male who underwent a resection with proximal diversion for a colon cancer, about 6-8 months ago. OPERATIVE FINDINGS Ileostomy. OPERATIVE COURSE The patient was brought to the operating room and placed in the supine position. After induction of general anesthesia, the stoma was sutured closed with 3-0 Vicryl. The skin of the anterior abdominal wall was then prepped and draped in the usual sterile fashion. A transverse lenticular incision was made around the stoma and, using electrocautery, dissection was carried down to the fascia of the anterior abdominal wall. The small bowel was then gently cleared of the fascia circumferentially. There was a tiny hernia at the superior aspect. After this the bowel prolapsed out easily. The mesentery was cleared just proximal and distal to the ileostomy and a BEN 55 stapler was placed across the bowel. The intervening mesentery was divided and ligated using 0 Vicryl ties. The antimesenteric corners of the staple line were then removed. One limb of the gastrointestinal stapler was placed down each limb of the bowel. This was closed along the antimesenteric border and fired, thus creating an enteroenterostomy. The resulting enterotomy was closed transversely, using a TX 60 stapling device. The anastomosis was palpated and found to be widely patent and reduced back into the peritoneal cavity. The posterior fascia of the anterior abdominal wall was closed in a running fashion using #1 PDS and the anterior fascia of the anterior abdominal wall was closed in a running fashion using #1 PDS. The wound was copiously irrigated with warm normal saline. The subcutaneous tissue was re-approximated in an interrupted fashion using 3-0 Vicryl and the skin was closed in an interrupted subcuticular fashion using 3-0 Vicryl. A sterile dressing was then applied. All sponge, needle and instrument counts were correct and the patient was returned to the post-anesthesia care unit in stable condition. MD KEI Clayton /8:19 AM /10:13 AM MTDEstela
[2016-11-01] MEDS: D5-NS + KCL 20 MEQ INJ 1,000 ML IV SCH ×2 (15:17→20:06)
[2016-11-02] VITALS: BP 132/80; PULSE 100; RESP 18; TEMP 95.4; O2SAT 98
[2016-11-02] MEDS: MORPHINE SULFATE 30 MG/30 ML PCA IV SCH (03:57)
[2016-11-02 04:00] VITALS: BP 157/87; PULSE 100; RESP 18; TEMP 98.2; O2SAT 98
[2016-11-02] MEDS: PCA - TOTAL MG MORPHINE DELIVERED PER SHIFT SCH (06:00)
[2016-11-02] MEDS: DEXT 5%-NACL 0.9% 1000 ML INJ 1,000 ML IV SCH (06:00)
[2016-11-02] MEDS: HEPARIN SODIUM - SQ 10,000 UNITS/ML VIAL SQ SCH (06:40)
[2016-11-02 07:00] LABS: AUTOMATED NEUTROPHIL # 9.4 TH/MM3 (1.8-7.7); BASOPHIL % 0.2 % (0.0-2.0); EOSINOPHIL % 0.3 % (0.0-4.0); HEMATOCRIT 32.5 % (39.0-51.0); HEMO FLAGS DIFF FINAL; LYMPH % 4.4 % (9.0-44.0); LYMPHOCYTE # 0.5 TH/MM3 (1.0-4.8); MEAN CELL VOLUME 88.6 FL (80.0-100.0); MEAN CORPUSCULAR HEMOGLOBIN 28.8 PG (27.0-34.0); MEAN CORPUSCULAR HGB CONC 32.5 % (32.0-36.0); MONO % 8.3 % (0.0-8.0); NEUT % 86.8 % (16.0-70.0); PLATELET COUNT 128 TH/MM3 (150-450); RED BLOOD COUNT 3.66 MIL/MM3 (4.50-5.90); RED CELL DISTRIBUTION WIDTH 14.8 % (11.6-17.2); WHITE BLOOD COUNT 10.8 TH/MM3 (4.0-11.0)
[2016-11-02 07:13] LABS: BICARBONATE 21.2 MEQ/L (21.0-32.0); POTASSIUM 4.9 MEQ/L (3.5-5.1)
[2016-11-02 08:00] VITALS: BP 122/77; PULSE 122; RESP 20; TEMP 95.8; O2SAT 97
[2016-11-02] MEDS: PANTOPRAZOLE SODIUM 40 MG VIAL IVP SCH (08:18)
[2016-11-02] MEDS: SODIUM CHLORIDE 0.9% FLUSH 5 ML FLUSH IVF SCH (08:19)
[2016-11-02 12:00] VITALS: BP 125/72; PULSE 120; RESP 24; TEMP 96.9; O2SAT 98
[2016-11-03] MEDS ORDERED: ASPI81CH37 CHEW (05:57)
--- NOTE | 2016-12-18 11:10 | MD ---
cc: HILLARY PORETR M.D. ADMISSION DATE: 10/30/2016 DISCHARGE DATE: 11/02/2016 ADMISSION DIAGNOSIS 1. History of colon cancer. 2. Hypertension. 3. Coronary artery disease. 4. Diabetes. DISCHARGE DIAGNOSIS 1. History of colon cancer. 2. Hypertension. 3. Coronary artery disease. 4. Diabetes. PROCEDURE Resection with reanastomosis of ileostomy. BRIEF HISTORY The patient is a 71-year-old male who was about 6-8 months status post an ascending colectomy with proximal diversion for a colon cancer. HOSPITAL COURSE He was admitted to the hospital on 10/30/2016 at which point he underwent the above-named procedure. Postoperatively he did well with rapid return of bowel and bladder function. He was discharged to home on 11/02/2016 with instructions to follow-up with myself in the office. Hillary Porter MD KW/BT /12:53 AM /11:11 AM
== END 2016-11-02 16:43 | disposition home or self-care (01) | DRG 331 ==
LOC: HSDI 10-30 05:25 → N07A 10-30 13:16
PROVIDERS: ADMIT Colon & Rectal Surgery; ATTEND Colon & Rectal Surgery
PROC: 0DBB0ZZ Excision of Ileum, Open Approach (ICD-10-PCS; principal; 2016-10-30 07:00)
DX: Z43.2 Encounter for attention to ileostomy (principal); I10 Essential (primary) hypertension; I25.10 Atherosclerotic heart disease of native coronary artery without angina pectoris; I34.0 Nonrheumatic mitral (valve) insufficiency; E11.9 Type 2 diabetes mellitus without complications; H40.9 Unspecified glaucoma; Z95.1 Presence of aortocoronary bypass graft; Z85.038 Personal history of other malignant neoplasm of large intestine; Z95.810 Presence of automatic (implantable) cardiac defibrillator; Z53.09 Procedure and treatment not carried out because of other contraindication
CPT/HCPCS: 80048; 85025; 86850; 86900; 86901; 88304; 94150; 99211; C9113; G0463; J0131; J0690; J1644; J2250; J2270; J2405; J3010; J3480; J7120

== ENCOUNTER 2016-11-03 05:15 | Inpatient (IN) | payer OTHER, MEDICARE ==
[2016-11-03] VITALS (18 sets, daily range): BP systolic 126–174; BP diastolic 62–86; PULSE 62–125; RESP 16–24; TEMP 98–98.7; O2SAT 97–99
[~2016-11-03 05:15] MED LIST changes: -ASPI81TA11 PO; -CHOL5000 PO; +HYDR-3516 PO; -MULTTAB67 PO; -VITA100021 SL
[2016-11-03] MEDS ORDERED: AMIODARONE INJ 450 MG in D5W (EXCEL BAG) 241 ML IV SCH (05:30)
[2016-11-03] MEDS ORDERED: ASPI81CH37 CHEW (05:57)
--- NOTE | 2016-11-03 06:18 | PD ---
HPI Chief Complaint: Cardiac Complaint Time Seen by Provider: 05:20 Travel History International Travel<30 days: No Contact w/Intl Traveler<30days: No Traveled to known affect area: No History of Present Illness HPI 71yo M with PMH of CAD s/p CABG, CHF EF 25% s/p AICD, HTN, HLD, Colon CA presents to the ED s/p AICD firing today. Pt states it was about 4am when it started firing, 6-7 times. Pt was still in Vtach 200s when [facility] arrived and they cardioverted him twice and gave amiodarone 150mg IV. Pt was still tachycardic at 135bpm in the ED and I started pt on amiodarone drip. Pt felt better upon arrival to the ED and denies any chest pain, sob, n/v, abdominal pain, focal weakness or numbness. Pt just return home from hospital yesterday after having resection with reanastomosis ileostomy by Dr. Price 4 days ago. Pt's digital associate media director is Dr. Macias. [facility] Past Medical History Arthritis: No Asthma: No Autoimmune Disease: No Heart Rhythm Problems: No Cancer: Yes (COLON) Cardiovascular Problems: Yes High Cholesterol: Yes Chemotherapy: Yes Chest Pain: No Congestive Heart Failure: Yes COPD: No Cerebrovascular Accident: No Diabetes: Yes (DIET CONTROLLED) Patient Takes Glucophage: No Diminished Hearing: No Endocrine: No Gastrointestinal Disorders: Yes (ILEOSTOMY) GERD: No Genitourinary: No Headaches: No Hepatitis: No Hiatal Hernia: No Heparin Induced Thrombocytopen: No Hypertension: Yes Immune Disorder: No Implanted Vascular Access Dvce: Yes (PACEMAKER) Kidney Stones: No Musculoskeletal: No Neurologic: No Psychiatric: No Reproductive: No Respiratory: No Migraines: No Myocardial Infarction: No Radiation Therapy: No Renal Failure: No Seizures: No Sickle Cell Disease: No Sleep Apnea: No Thyroid Disease: No Ulcer: No PNEUMOCCOCAL Vaccine (Year): 1 Past Surgical History Abdominal Surgery: Yes (ILEOSTOMY. ILEOSTOMY REVERSAL 10/30/16) AICD: Yes (BIOTRONIK ITREVIA 7 HF-T, REF:[id number], SN:[id number], PID:76) Appendectomy: No Arteriovenous Shunt: No Cardiac Surgery: Yes (AICD) Cholecystectomy: No Coronary Artery Bypass Graft: Yes (2 VESSELS) Ear Surgery: No Endocrine Surgery: No Eye Surgery: No Genitourinary Surgery: No Gynecologic Surgery: No Insulin Pump: No Joint Replacement: No Neurologic Surgery: Yes Oral Surgery: No Pacemaker: No Thoracic Surgery: No Other Surgery: Yes (Bowel resection from CA with Colostomy/ COLOSTOMY REVERSAL) Social History Alcohol Use: No Tobacco Use: No Substance Use: No Allergies-Medications (Allergen,Severity, Reaction): Coded Allergies: No Known Allergies (Unverified , 11/03/16) Reported Meds & Prescriptions Reported Meds & Active Scripts Active Hydrocodone-Acetaminophen 5-325 mg Tab 1-2 Tab PO Q6H PRN Eliquis (Apixaban) 5 Mg Tab 5 Mg PO BID Reported Aspirin Low Dose (Aspirin) 81 Mg Chew 81 Mg CHEW DAILY Atorvastatin (Atorvastatin Calcium) 40 Mg Tab 40 Mg PO HS Metoprolol Tartrate 100 Mg Tab 100 Mg PO BID Review of Systems Except as stated in HPI: all other systems reviewed are Neg Physical Exam Narrative GENERAL: 71yo M in mild distress. SKIN: Focused skin assessment warm/dry. HEAD: Atraumatic. Normocephalic. EYES: Pupils equal and round. No scleral icterus. No injection or drainage. ENT: No nasal bleeding or discharge. Mucous membranes pink and moist. NECK: Trachea midline. No JVD. CARDIOVASCULAR: Regular rate and rhythm. No murmur appreciated. RESPIRATORY: No accessory muscle use. Clear to auscultation. Breath sounds equal bilaterally. GASTROINTESTINAL: Abdomen soft, non-tender, nondistended. Steri strips c/d/i. MUSCULOSKELETAL: No obvious deformities. No clubbing. No cyanosis. No edema. NEUROLOGICAL: Awake and alert. No obvious cranial nerve deficits. Motor grossly within normal limits. Normal speech. PSYCHIATRIC: Appropriate mood and affect; insight and judgment normal. Data Data Last Documented VS Vital Signs Date Time Temp Pulse Resp B/P Pulse Ox O2 Delivery O2 Flow Rate FiO2 11/03/16 05:31 125 11/03/16 05:22 98.7 16 138/62 97 Orders Amiodarone Inj (Cordarone Inj) (11/03/16 05:30) Complete Blood Count With Diff (11/03/16 05:27) Basic Metabolic Panel (Bmp) (11/03/16 05:27) Ckmb (Isoenzyme) Profile (11/03/16 05:27) Troponin I (11/03/16 05:27) Prothrombin Time / Inr (Pt) (11/03/16 05:27) Act Partial Throm Time (Ptt) (11/03/16 05:27) Magnesium (Mg) (11/03/16 05:27) Chest, Single Ap (11/03/16 ) Magnesium Sulfate 1 Gm Premix (Magnesium (11/03/16 07:00) Admit Order (Ed Use Only) (11/03/16 06:52) Labs Laboratory Tests Test 11/03/16 05:45 White Blood Count 8.4 TH/MM3 Red Blood Count 3.52 MIL/MM3 Hemoglobin 10.3 GM/DL Hematocrit 30.8 % Mean Corpuscular Volume 87.6 FL Mean Corpuscular Hemoglobin 29.2 PG Mean Corpuscular Hemoglobin 33.4 % Concent Red Cell Distribution Width 14.3 % Platelet Count 134 TH/MM3 Mean Platelet Volume 9.4 FL Neutrophils (%) (Auto) 78.3 % Lymphocytes (%) (Auto) 11.3 % Monocytes (%) (Auto) 8.4 % Eosinophils (%) (Auto) 1.7 % Basophils (%) (Auto) 0.3 % Neutrophils # (Auto) 6.6 TH/MM3 Lymphocytes # (Auto) 1.0 TH/MM3 Monocytes # (Auto) 0.7 TH/MM3 Eosinophils # (Auto) 0.1 TH/MM3 Basophils # (Auto) 0.0 TH/MM3 CBC Comment DIFF FINAL Differential Comment Prothrombin Time 12.1 SEC Prothromb Time International 1.1 RATIO Ratio Activated Partial 23.9 SEC Thromboplast Time Sodium Level 140 MEQ/L Potassium Level 4.1 MEQ/L Chloride Level 111 MEQ/L Carbon Dioxide Level 18.1 MEQ/L Anion Gap 11 MEQ/L Blood Urea Nitrogen 31 MG/DL Creatinine 1.76 MG/DL Estimat Glomerular Filtration 39 ML/MIN Rate Random Glucose 165 MG/DL Calcium Level 8.9 MG/DL Magnesium Level 1.5 MG/DL Total Creatine Kinase 56 U/L Troponin I 0.09 NG/ML [facility] Medical Decision Making Medical Screen Exam Complete: Yes Emergency Medical Condition: Yes Interpretation(s) EKG: RBBB 135bpm. LAD. Differential Diagnosis Vtach vs. hypomagnesemia vs. other electrolyte abnormality vs. ACS Narrative Course 71yo M s/p AICD firing for Vtach and found to be in Vtach by [facility]. Pt was given amiodarone 150mg by [facility] and started on amiodarone drip in the ED. Pt placed immediately on senior gl accountant and pacer pads placed. Heart rate has been controlled in the high 90s on amiodarone drip and pt feels better. His AICD is from [place]. Labs reviewed, no leukocytosis. H/H low but at baseline. BUN/creatinine elevated but at baseline. Troponin is elevated at 0.09 likely from AICD firing. Magnesium is borderline low at 1.5, replaced with magnesium sulfate 1gm IV. CXR showed trace left base atelectasis. Discussed with disposition clerk Dr. Lim and accepted to her service. Critical Care Narrative Aggregate critical care time was 40 minutes. Time to perform other separately billable procedures was not included in the critical care time. My time did not include minutes spent treating any other patients simultaneously or on activities that did not directly contribute to the patient's treatment. The services I provided to this patient were to treat and/or prevent clinically significant deterioration that could result in: cardiovascular collapse or . I provided critical care services requiring my management, as noted below: Chart data review, documentation time, medication orders and management, vital sign assessments/reviewing monitor data, ordering and reviewing lab tests, ordering and interpreting/reviewing x-rays and diagnostic studies, care of the patient and discussion of the patient with the admitting physicians. Diagnosis Primary Impression: V-tach Admitting Information Admitting Physician Requests: it Priscilla Edmondson DO Nov 03, 2016 06:17
[2016-11-03 06:21] LABS: APTT (PATIENT) 23.9 SEC (24.3-30.1); AUTOMATED NEUTROPHIL # 6.6 TH/MM3 (1.8-7.7); BASOPHIL % 0.3 % (0.0-2.0); EOSINOPHIL # 0.1 TH/MM3 (0-0.4); EOSINOPHIL % 1.7 % (0.0-4.0); HEMATOCRIT 30.8 % (39.0-51.0); HEMO FLAGS DIFF FINAL; INTERNATIONAL NORMALIZED RATIO 1.1 RATIO; LYMPH % 11.3 % (9.0-44.0); MEAN CELL VOLUME 87.6 FL (80.0-100.0); MEAN CORPUSCULAR HEMOGLOBIN 29.2 PG (27.0-34.0); MEAN CORPUSCULAR HGB CONC 33.4 % (32.0-36.0); MONO % 8.4 % (0.0-8.0); NEUT % 78.3 % (16.0-70.0); PLATELET COUNT 134 TH/MM3 (150-450); PROTHROMBIN TIME - PATIENT 12.1 SEC (9.8-11.6); RED BLOOD COUNT 3.52 MIL/MM3 (4.50-5.90); RED CELL DISTRIBUTION WIDTH 14.3 % (11.6-17.2); WHITE BLOOD COUNT 8.4 TH/MM3 (4.0-11.0)
--- NOTE | 2016-11-03 06:26 | RADRPT ---
EXAM DATE/TIME: 11/03/2016 05:41 [facility] COMPARISON: CHEST SINGLE AP, July 06, 2016, 10:35. INDICATIONS : Shortness of breath. MEDICAL HISTORY : Cardiovascular disease. Hypertension Diabetes mellitus type II. SURGICAL HISTORY : Pacemaker. ENCOUNTER: Initial ACUITY: 1 day PAIN SCORE: 0/10 LOCATION: Bilateral chest FINDINGS: Very mild left base atelectasis noted. No pleural effusion seen. No pneumothorax. Heart size upper limits of normal. Pacer/defibrillator again noted. Patient has had previous median s ternotomy. Unchanged right hemidiaphragm elevation. CONCLUSION: Trace left base atelectasis. Robinson Andrew MD on November 03, 2016 at 6:23 Board Certified Radiologist. This report was verified electronically.
[2016-11-03 06:28] LABS: BICARBONATE 18.1 MEQ/L (21.0-32.0); MAGNESIUM 1.5 MG/DL (1.5-2.5); POTASSIUM 4.1 MEQ/L (3.5-5.1)
[2016-11-03] MEDS ORDERED: ONDANSETRON HCL 4 MG/2 ML VIAL IV PRN (07:00)
[2016-11-03] MEDS ORDERED: ACETAMINOPHEN 325 MG TAB PO PRN (07:00)
[2016-11-03] MEDS ORDERED: MISCELLANEOUS NURSING INFORMATION XX SCH (07:00)
[2016-11-03] MEDS ORDERED: MAGNESIUM SULFATE 1 GM PREMIX 100 ML IV ONE (07:00)
[2016-11-03] MEDS ORDERED: CHLORHEXIDINE GLUCONATE 2 % 1 PACK (2 CLOTHS) TOP PRN (07:00)
[2016-11-03] MEDS ORDERED: SODIUM CHLORIDE 0.9% FLUSH 10 ML FLUSH PRN (07:00)
[2016-11-03] MEDS ORDERED: AMIODARONE INJ 900 MG in D5W 500 ML (EXCEL BAG) 482 ML IV SCH (07:15)
[2016-11-03] MEDS ORDERED: PANTOPRAZOLE SOD 40 MG DELAYED RELEASE TAB PO SCH (09:00)
--- NOTE | 2016-11-03 11:15 | MB ---
cc: IZABELLA TABOR GLENN H. M.D. DATE OF CONSULTATION: 11/03/2016. REASON FOR CONSULTATION: VT / AICD shocks. HISTORY OF PRESENT ILLNESS: 71-year-old male with past medical history significant for ischemic cardiomyopathy, ejection fraction of 20% status post AICD Biotronik, hypertension, hyperlipidemia who presented to the emergency department via [facility] after having received several shocks from his AICD. The patient reports that he was in his usual state of health when all of a sudden, his AICD started firing. He denies any chest pain, shortness of breath or palpitations. [facility] cardioverted him twice in the field and gave h im amiodarone in boluses. In the emergency department, he was started on an amiodarone drip. Of note, the patient had a recent re-anastomosis of ileostomy by Dr. Porter. REVIEW OF SYSTEMS: The review of systems is negative except for what is mentioned in the history of present illness. PAST MEDICAL HISTORY: 1. Coronary artery disease status post CABG. 2. Severe left ventricular systolic dysfunction with ejection fraction of 25% status post AICD. 3. Hypertension. 4. Hyperlipidemia. 5. Colon cancer status post resection. 6. Ileostomy reversal. 7. Atrial fibrillation on chronic oral anticoagulation. PAST SURGICAL HISTORY: 1. Ileostomy reversal. 2. Biotronik AICD implantation. 3. Two-vessel bypass surgery. 4. Bowel resection from colon cancer with colostomy SOCIAL HISTORY: Denies alcohol use, illicit drug use or smoking abuse. ALLERGIES: NO KNOWN DRUG ALLERGIES. HOME MEDICATIONS: 1. Percocet one tab p.o. q. 6 hours PRN for pain. 2. Eliquis 5 milligrams p.o. twice a day. 3. Aspirin 81 milligrams p.o. daily. 4. Lipitor 40 milligrams p.o. daily. 5. Metoprolol 100 milligrams p.o. twice a day. PHYSICAL EXAMINATION: VITAL SIGNS: Temperature 98.4, pulse 62, blood pressure 167/75, 02 saturation 99% on room air. GENERAL: He is awake, alert and oriented times three in no acute distress. NECK: No jugular venous distention. No carotid bruits. HEART: Regular rate and rhythm. No murmurs, rubs or gallops. LUNGS: Clear to auscultation bilaterally. ABDOMEN: The abdomen is soft, nontender and nondistended. EXTREMITIES: No cyanosis or edema. Pulses throughout. DATA: CBC: Hemoglobin 10, hematocrit 30, platelet count 134,000. INR 1.1. Chemistries: Sodium 140, potassium 4.1, BUN 31, creatinine 1.76. Troponin 0.09. IMAGING STUDIES: Chest x-ray: Left base atelectasis. ASSESSMENT: 71-year-old male with known ischemic cardiomyopathy status post AICD who presented to the hospital after receiving several AICD shocks. He reports being compliant with medications. He denies any chest pain, shortness of breath or palpitations. He has been admitted to the intensive care unit. He has been started on an amiodarone drip. No more episodes of ventricular tachycardia or ventricular fibrillation on telemetry here. The AICD unfortunately has not been interrogated to better assess the rhythm or if the shocks were appropriate. RECOMMENDATIONS/PLAN: 1. Will ask for the [employer] rep to interrogate the device. 2. Will continue the amiodarone drip per protocol. 3. Eliquis, aspirin, Lipitor and metoprolol. Dr. Jon Macias will be back tomorrow, and he will be able to see the patient at that time. Thank you for the opportunity to take part in the care of this patient. Further therapy to be determined. MD SOCRATES Rivera/MARIN /10:22 AM /11:01 AM CALI
[2016-11-03] MEDS: ATORVASTATIN 40 MG TAB PO SCH (13:15)
[2016-11-03] MEDS: ASPIRIN EC 81 MG TABEC PO SCH (13:15)
[2016-11-03] MEDS: METOPROLOL TARTRATE 25 MG TAB PO SCH ×2 (13:15→21:23)
[2016-11-03 15:51] LABS: CREATINE KINASE 277 U/L (39-308)
[2016-11-03 16:09] LABS: CKMB 6.4 NG/ML (0.5-3.6)
--- NOTE | 2016-11-03 16:29 | HHI.HP ---
HPI Service Critical Care Medicine Primary Care Physician Sheldon Dallas MD Admission Diagnosis Vtach Diagnosis: Travel History International Travel<30 Days: No Contact w/Intl Traveler <30 Da: No Traveled to Known Affected Are: No History of Present Illness 71-year-old male with past medical history of coronary artery disease status post CABG, chronic systolic heart failure with ejection fraction 20-25%, status post AICD (Biotronik device), hypertension, hyperlipidemia, colorectal cancer. He states that he awoke at around 4 AM and got up to get a drink of water and that his ICD fired numerous times. He denies any premonitory symptoms of chest discomfort or shortness of breath. Denies nausea vomiting. He also underwent cardioversion x2 and amiodarone 150 mg IV per E [facility]. His heart rate was in the 130s upon arrival to the emergency department he was started on amiodarone drip. He did have a recent ileostomy reversal 10/[address] Deep Porter. He states he has been doing well postoperatively, denies abdominal pain and states that his appetite is almost back to normal. Past Family Social History Allergies: Coded Allergies: No Known Allergies (Unverified , 11/03/16) Past Medical History Coronary artery disease status post CABG Ischemic cardiomyopathy with chronic systolic heart failure with ejection fraction 20-25% Atrial fibrillation, on Chronic anticoagulation. Also unable to rule out apical thrombus on last echo from 07/08/16. Per Dr. Macias documentation, apical thrombus was felt to be less likely but patient was continuing on anticoagulation for A. fib. Hypertension Diabetes mellitus Hyperlipidemia CKD stage III Colorectal cancer Right foot osteomyelitis Past Surgical History Ileostomy reversal 08/01/16 (Dr. Hillary Porter) Descending colectomy, sigmoid polypectomy and diverting loop ileostomy 02/16/16 CABG AICD placement Amputation of right second toe Reported Medications Eliquis 5 mill grams by mouth twice a day Metoprolol 100 mg by mouth twice a day Atorvastatin 40 g by mouth at bedtime Aspirin 81 mill grams by mouth daily Hydrocodone 5/325 one by mouth every 6 hours when necessary pain Family History Patient denies significant family medical history Social History Patient denies history of tobacco alcohol or illicit drug use Physical Exam Vital Signs Vital Signs Date Time Temp Pulse Resp B/P Pulse Ox O2 Delivery O2 Flow Rate FiO2 11/03/16 15:55 98.6 74 18 164/77 97 11/03/16 15:00 75 11/03/16 14:00 98.6 74 18 164/77 97 11/03/16 13:06 98.6 64 18 174/86 97 11/03/16 12:00 98.6 64 18 174/86 97 11/03/16 12:00 98.6 64 18 174/86 97 11/03/16 11:00 98.4 62 18 157/75 99 11/03/16 10:01 98.4 62 18 157/75 99 11/03/16 09:48 99 Nasal Cannula 2.00 11/03/16 07:44 77 24 126/72 99 Nasal Cannula 2 11/03/16 07:19 81 18 139/67 98 Nasal Cannula 2 11/03/16 05:31 125 11/03/16 05:22 98.7 125 16 138/62 97 Physical Exam Drips: Amiodarone 0.5 mg per hour GENERAL: Well-nourished, well-developed patient who is extremely pleasant sitting up in bed. Denies complaint. SKIN: Warm and dry, well perfused HEAD: Atraumatic. Normocephalic. EYES: Pupils equal and round. No scleral icterus. No injection or drainage. ENT: No nasal bleeding or discharge. Mucous membranes pink and moist. NECK: Trachea midline. No JVD. CARDIOVASCULAR: Regular rate and rhythm. No murmurs rubs or gallops. RESPIRATORY: No accessory muscle use. Clear to auscultation. Breath sounds equal bilaterally. GASTROINTESTINAL: Abdomen soft, non-tender, nondistended, bowel sounds present. Steristrip in place right lower quadrant are clean/dry/intact. MUSCULOSKELETAL: Extremities without clubbing, cyanosis, or edema. No obvious deformities. NEUROLOGICAL: Awake and alert. No obvious cranial nerve deficits. Motor grossly within normal limits. Normal speech. Laboratory Laboratory Tests Test 11/03/16 11/03/16 11/03/16 05:45 10:35 13:13 White Blood Count 8.4 Red Blood Count 3.52 Hemoglobin 10.3 Hematocrit 30.8 Mean Corpuscular Volume 87.6 Mean Corpuscular Hemoglobin 29.2 Mean Corpuscular Hemoglobin 33.4 Concent Red Cell Distribution Width 14.3 Platelet Count 134 Mean Platelet Volume 9.4 Neutrophils (%) (Auto) 78.3 Lymphocytes (%) (Auto) 11.3 Monocytes (%) (Auto) 8.4 Eosinophils (%) (Auto) 1.7 Basophils (%) (Auto) 0.3 Neutrophils # (Auto) 6.6 Lymphocytes # (Auto) 1.0 Monocytes # (Auto) 0.7 Eosinophils # (Auto) 0.1 Basophils # (Auto) 0.0 CBC Comment DIFF FINAL Differential Comment Prothrombin Time 12.1 Prothromb Time International 1.1 Ratio Activated Partial 23.9 Thromboplast Time Sodium Level 140 Potassium Level 4.1 Chloride Level 111 Carbon Dioxide Level 18.1 Anion Gap 11 Blood Urea Nitrogen 31 Creatinine 1.76 Estimat Glomerular Filtration 39 Rate Random Glucose 165 Calcium Level 8.9 Magnesium Level 1.5 Total Creatine Kinase 56 277 Troponin I 0.09 0.47 Nasal Screen MRSA (PCR) MRSA NOT DETECTED Creatine Kinase MB 6.4 Result Diagram: 11/03/1645 11/03/16 0545 Assessment and Plan Assessment and Plan NEURO: Lortab as needed for pain RESP: Nasal cannula wean as tolerated. CV: Multiple shocks delivered by ICD device Coronary artery disease status post CABG ICD Biotronik device Atrial fibrillation on chronic anticoagulation with Eliquis Hypertension Hyperlipidemia Started on amiodarone drip upon admission due to concern for V tach. Device interrogated and patient had 14 episodes of SVT and shock delivered inappropriately. Adjustments made per device rep. Discussed with Dr. Hutchins, will d/c amiodarone drip. Will observe on telemetry overnight to determine if any further issues with SVT. Dr. Macias to see tomorrow. Continue metoprolol 25 every 12 hours Continue aspirin 81 daily Continue Lipitor 40 g by mouth daily Continue eliquis 5 mg po bid unable to rule out apical thrombus on last echo from 07/08/16. Per Dr. Macias documentation, apical thrombus was felt to be less likely but patient was continuing on anticoagulation for A. fib. Mild troponin elevation of 0.47 may be secondary to defibrillation GI: History of colorectal cancer Ileostomy reversal 08/01/16 (Dr. Hillary Porter) Descending colectomy, sigmoid polypectomy and diverting loop ileostomy 02/16/[address] Porter updated regarding admission out of courtesy, formal consultation not needed. FEN/RENAL: Chronic kidney disease stage III Hypomagnesemia Voiding. Monitor intake and output Potassium 4.1. Magnesium 1.5, given magnesium 1 g IV . ID: Monitor for signs and symptoms of infection HEME: Chronic asymptomatic anemia ENDO: Diabetes mellitus Low-dose insulin sliding scale at bedside glucose ac/hs. PROPH: On Eliquis which will also for DVT prophylaxis. Stress ulcer prophylaxis not indicated. ACCESS: Peripheral IV providing adequate access at this time. Discussed with Dr. Hutchins. Transfer patient to see [facility] with telemetry monitoring. D/c amiodarone. Consult hospitalist to assume medical management Discussed with VIANCA Bello. Level III H&P Lucia Lim MD Nov 03, 2016 16:29
[2016-11-03] MEDS ORDERED: DEXTROSE 50% IN WATER 50 ML VIAL(D50) IV PUSH PRN (17:15)
[2016-11-03] MEDS ORDERED: ACETAMINOPHEN/HYDROcodone 325 MG/5 MG TAB PO PRN (17:15)
[2016-11-03] MEDS ORDERED: GLUCAGON 1 MG/ML VIAL OTHER PRN (17:15)
--- NOTE | 2016-11-03 18:40 | EKG ---
Date Performed: 11/03/2016 Time Performed: 05:21:06 PTAGE: 71 years EKG: WIDE COMPLEX TACHYCARDIA MARKED LEFT AXIS DEVIATION RIGHT BUNDLE BRANCH BLOCK ABNORMAL ECG PREVIOUS TRACING : 07/06/2016 20.26 Compared to the previous tracing SR no longer present DOCTOR: Vic Chavez Interpretating Date/Time 11/03/2016 18:38:07
[2016-11-03] MEDS: SODIUM CHLORIDE 0.9% FLUSH 10 ML FLUSH SCH (21:00)
[2016-11-03] MEDS: INSULIN ASPART SUPPLEMENTAL SCALE SQ SCH (21:00)
[2016-11-03] MEDS: APIXABAN 5 MG TABLET PO SCH (21:23)
[2016-11-03 22:23] LABS: CKMB 4.9 NG/ML (0.5-3.6)
[2016-11-04] VITALS (23 sets, daily range): BP systolic 123–170; BP diastolic 68–92; PULSE 72–100; RESP 18; TEMP 98.1–98.4; O2SAT 94–99
[2016-11-04] MEDS: CHLORHEXIDINE GLUCONATE 2 % 1 PACK (2 CLOTHS) TOP SCH (03:40)
--- NOTE | 2016-11-04 05:33 | RADRPT ---
EXAM DATE/TIME: 11/04/2016 04:59 [facility] COMPARISON: CHEST SINGLE AP, November 03, 2016, 5:41. INDICATIONS : Shortness of breath, possible pulmonary disease. MEDICAL HISTORY : Cardiovascular disease. Hypertension Diabetes mellitus type II. SURGICAL HISTORY : Pacemaker. CABG. ENCOUNTER: Subsequent ACUITY: 2 days PAIN SCORE: 0/10 LOCATION: Bilateral chest FINDINGS: The cardiac silhouette is enlarged in transverse diameter. A biventricular defibrillator is in place via a left sided approach. There is elevation of the right hemidiaphragm. CONCLUSION: 1. Cardiomegaly. No acute cardiopulmonary disease. Virgilio Selby MD on November 04, 2016 at 5:31 Board Certified Radiologist. This report was verified electronically.
[2016-11-04] MEDS: INSULIN ASPART SUPPLEMENTAL SCALE SQ SCH ×4 (06:44→21:00)
[2016-11-04 06:56] LABS: AUTOMATED NEUTROPHIL # 6.6 TH/MM3 (1.8-7.7); BASOPHIL % 0.2 % (0.0-2.0); EOSINOPHIL # 0.2 TH/MM3 (0-0.4); EOSINOPHIL % 2.3 % (0.0-4.0); HEMATOCRIT 30.4 % (39.0-51.0); HEMO FLAGS DIFF FINAL; LYMPH % 13.7 % (9.0-44.0); LYMPHOCYTE # 1.2 TH/MM3 (1.0-4.8); MEAN CELL VOLUME 88.1 FL (80.0-100.0); MEAN CORPUSCULAR HEMOGLOBIN 28.8 PG (27.0-34.0); MEAN CORPUSCULAR HGB CONC 32.6 % (32.0-36.0); MONO % 8.4 % (0.0-8.0); NEUT % 75.4 % (16.0-70.0); PLATELET COUNT 149 TH/MM3 (150-450); RED BLOOD COUNT 3.46 MIL/MM3 (4.50-5.90); RED CELL DISTRIBUTION WIDTH 14.2 % (11.6-17.2); WHITE BLOOD COUNT 8.8 TH/MM3 (4.0-11.0)
[2016-11-04 07:05] LABS: ALKALINE PHOSPHATASE 61 U/L (45-117); ALT (GPT) 13 U/L (12-78); ANION GAP 8 MEQ/L (5-15); AST (GOT) 25 U/L (15-37); BICARBONATE 23.9 MEQ/L (21.0-32.0); BLOOD UREA NITROGEN 33 MG/DL (7-18); CHLORIDE 109 MEQ/L (98-107); GLOMERULAR FILTRATION RATE 39 ML/MIN (>89); MAGNESIUM 1.8 MG/DL (1.5-2.5); SODIUM (NA) 141 MEQ/L (136-145); TOTAL BILIRUBIN ADULT 1.1 MG/DL (0.2-1.0)
--- NOTE | 2016-11-04 08:01 | PD.CARD.PN ---
Subjective Subjective Remarks Denies CP, dyspnea, palpitations, dizziness, syncope, PND. Objective Medications Item Value Date Time Apixaban 5 mg 11/03/16 2100 (Eliquis) BID/PO 11/03/162122 Atorvastatin 40 mg 11/03/16 1030 Calcium DAILY/PO 11/03/16 1315 (Lipitor) Metoprolol 25 mg 11/03/16 1030 Tartrate Q12HR/PO 11/03/162122 (Lopressor) Aspirin 81 mg 11/03/16 1030 (Ecotrin Ec) DAILY/PO 11/03/16 1315 Vital Signs / I&O Vital Signs Date Time Temp Pulse Resp B/P Pulse Ox O2 Delivery O2 Flow Rate FiO2 11/04/16 05:00 80 11/04/16 04:00 98.1 77 18 170/92 99 11/04/16 04:00 78 11/04/16 03:00 82 11/04/16 02:00 84 11/04/16 01:00 82 11/04/16 00:00 98.2 80 18 148/81 97 11/04/16 00:00 85 11/03/16 23:00 88 11/03/16 22:00 82 11/03/16 21:00 78 11/03/16 20:00 98.0 82 18 157/86 99 11/03/16 18:00 98.6 74 18 164/77 97 11/03/16 17:00 98.4 62 18 135/71 99 11/03/16 16:00 98.6 74 18 164/77 97 11/03/16 15:55 98.6 74 18 164/77 97 11/03/16 15:00 75 11/03/16 14:00 98.6 74 18 164/77 97 11/03/16 13:06 98.6 64 18 174/86 97 11/03/16 12:00 98.6 64 18 174/86 97 11/03/16 12:00 98.6 64 18 174/86 97 11/03/16 11:00 98.4 62 18 157/75 99 11/03/16 10:01 98.4 62 18 157/75 99 11/03/16 09:48 99 Nasal Cannula 2.00 I/O 11/03/16 11/03/16 11/03/16 11/04/16 11/04/16/1/17 07:00 15:00 23:00 07:00 15:00 23:00 Intake Total 448 ml 240 ml Output Total 650 ml 460 ml Balance -202 ml -220 ml Intake Oral 250 ml 240 ml IV Total 198 ml Output Urine Total 650 ml 460 ml # Voids 3 # Bowel Movements 3 2 Physical Exam GENERAL: Well developed, well nourished. No acute distress. HEENT: Jugular venous pressure is normal. CHEST: Lungs clear to auscultation bilaterally. Unlabored respiratory effort. CARDIAC: Regular rate and rhythm without S3, S4, or murmur. ABDOMEN: Soft, nontender, no hepatosplenomegaly. Bowel sounds present. EXTREMITIES: No clubbing, cyanosis, or edema. Laboratory Laboratory Tests Test 11/03/16 11/03/16 11/03/16 11/04/16 10:35 13:13 21:34 04:35 Nasal Screen MRSA (PCR) MRSA NOT DETECTED Total Creatine Kinase 277 U/L 335 U/L Creatine Kinase MB 6.4 NG/ML 4.9 NG/ML Troponin I 0.47 NG/ML 0.32 NG/ML Creatine Kinase MB % 1.5 % White Blood Count 8.8 TH/MM3 Red Blood Count 3.46 MIL/MM3 Hemoglobin 9.9 GM/DL Hematocrit 30.4 % Mean Corpuscular Volume 88.1 FL Mean Corpuscular Hemoglobin 28.8 PG Mean Corpuscular Hemoglobin 32.6 % Concent Red Cell Distribution Width 14.2 % Platelet Count 149 TH/MM3 Mean Platelet Volume 9.4 FL Neutrophils (%) (Auto) 75.4 % Lymphocytes (%) (Auto) 13.7 % Monocytes (%) (Auto) 8.4 % Eosinophils (%) (Auto) 2.3 % Basophils (%) (Auto) 0.2 % Neutrophils # (Auto) 6.6 TH/MM3 Lymphocytes # (Auto) 1.2 TH/MM3 Monocytes # (Auto) 0.7 TH/MM3 Eosinophils # (Auto) 0.2 TH/MM3 Basophils # (Auto) 0.0 TH/MM3 CBC Comment DIFF FINAL Differential Comment Sodium Level 141 MEQ/L Potassium Level 4.0 MEQ/L Chloride Level 109 MEQ/L Carbon Dioxide Level 23.9 MEQ/L Anion Gap 8 MEQ/L Blood Urea Nitrogen 33 MG/DL Creatinine 1.73 MG/DL Estimat Glomerular Filtration 39 ML/MIN Rate Random Glucose 96 MG/DL Calcium Level 9.1 MG/DL Magnesium Level 1.8 MG/DL Total Bilirubin 1.1 MG/DL Aspartate Amino Transf 25 U/L (AST/SGOT) Alanine Aminotransferase 13 U/L (ALT/SGPT) Alkaline Phosphatase 61 U/L Total Protein 6.5 GM/DL Albumin 2.9 GM/DL Assessment and Plan Problem List: (1) AICD discharge Assessment and Plan: No further ICD shocks. It appears the shocks were delivered for SVT. Recommend maximize metoprolol dosing, start Amiodarone 400 mg po qd. (2) Ischemic cardiomyopathy Assessment and Plan: Compensated. No CHF. Maximize beta megan dosing. No PARVIN-I or ARB with his CRI. (3) Paroxysmal atrial fibrillation Assessment and Plan: No evidence from ICD interrogation of recent atrial fib. Continue Eliquis. (4) CAD (coronary artery disease) Assessment and Plan: Stable CAD status. No recent angina. Cont medical therapy, including daily baby aspirin. Code Status full code Discussed Condition With patient Problem Qualifiers (1) CAD (coronary artery disease): Qualified Code: I25.10 - Coronary artery disease involving [place] coronary artery of [place] heart without angina pectoris Jon Macias MD November 04, 2016 08:01
--- NOTE | 2016-11-04 08:40 | HHI.PR ---
Subjective Remarks Patient reports is feeling better. He denies any chest pain or shortness of breath. No further AICD discharge. States the new medication is working well. He is eating well. No nausea, vomiting, or abdominal pain. Normal stool. Objective Vitals Vital Signs Date Time Temp Pulse Resp B/P Pulse Ox O2 Delivery O2 Flow Rate FiO2 11/04/16 08:00 80 11/04/16 07:00 98.3 91 18 141/87 99 11/04/16 07:00 80 11/04/16 05:00 80 11/04/16 04:00 98.1 77 18 170/92 99 11/04/16 04:00 78 11/04/16 03:00 82 11/04/16 02:00 84 11/04/16 01:00 82 11/04/16 00:00 98.2 80 18 148/81 97 11/04/16 00:00 85 11/03/16 23:00 88 11/03/16 22:00 82 11/03/16 21:00 78 11/03/16 20:00 98.0 82 18 157/86 99 11/03/16 18:00 98.6 74 18 164/77 97 11/03/16 17:00 98.4 62 18 135/71 99 11/03/16 16:00 98.6 74 18 164/77 97 11/03/16 15:55 98.6 74 18 164/77 97 11/03/16 15:00 75 11/03/16 14:00 98.6 74 18 164/77 97 11/03/16 13:06 98.6 64 18 174/86 97 11/03/16 12:00 98.6 64 18 174/86 97 11/03/16 12:00 98.6 64 18 174/86 97 11/03/16 11:00 98.4 62 18 157/75 99 11/03/16 10:01 98.4 62 18 157/75 99 11/03/16 09:48 99 Nasal Cannula 2.00 I/O 11/03/16 11/03/16 11/03/16 11/04/16 11/04/16 11/04/16 07:00 15:00 23:00 07:00 15:00 23:00 Intake Total 448 ml 240 ml Output Total 650 ml 460 ml Balance -202 ml -220 ml Intake Oral 250 ml 240 ml IV Total 198 ml Output Urine Total 650 ml 460 ml # Voids 3 # Bowel Movements 3 2 Result Diagram: 11/04/16 0435 11/04/16 0435 Imaging Last Impressions Chest X-Ray 11/04/16 0000 Signed Impressions: Service Date/Time: Friday, November 04, 2016 04:59 - CONCLUSION: 1. Cardiomegaly. No acute cardiopulmonary disease. Virgilio Selby MD Objective Remarks GENERAL: This is a well-nourished, well-developed patient, in no apparent distress. CARDIOVASCULAR: Normal rate and regular rhythm without murmurs, gallops, or rubs. RESPIRATORY: Good respiratory efforts. Breath sounds equal and clear to auscultation bilaterally. GASTROINTESTINAL: Abdomen soft, non-tender, non-distended. Dressing intact. Normal active bowel sounds MUSCULOSKELETAL: Extremities without cyanosis, or edema. NEURO: Alert & Oriented x4 to person, place, time, situation. Moves all ext x4 PSYCH: Appropriate mood and affect. A/P Problem List: (1) AICD discharge ICD Code: Z45.02 Status: Acute (2) Ischemic cardiomyopathy ICD Code: I25.5 Status: Acute (3) Paroxysmal atrial fibrillation ICD Code: I48.0 Status: Acute (4) Elevated troponin ICD Code: R79.89 Status: Acute (5) HTN (hypertension) ICD Code: I10 Status: Chronic (6) Anemia ICD Code: D64.9 Status: Acute Assessment and Plan 71-year-old male with: Multiple shocks delivered by ICD device Coronary artery disease status post CABG ICD Biotronik device Atrial fibrillation on chronic anticoagulation with Eliquis Hypertension Hyperlipidemia Started on amiodarone drip upon admission due to concern for V tach. Device interrogated and patient had 14 episodes of SVT and shock delivered inappropriately. Adjustments made per device rep. Appreciate cardiology following. Patient transitioned to oral amiodarone and metoprolol. Clinically improving. Continue metoprolol 50 mg every 12 hours and amiodarone 400 mg daily. Continue aspirin 81 daily Continue Lipitor 40 g by mouth daily Continue eliquis 5 mg po bid History of colorectal cancer Ileostomy reversal 08/01/16 (Dr. Hillary Porter) Descending colectomy, sigmoid polypectomy and diverting loop ileostomy 02/16/16 Heart healthy diet. Patient is doing well from that standpoint. Dr. Porter updated regarding admission out of courtesy, formal consultation not needed. Chronic kidney disease stage III - Stable. Avoid nephrotoxins. Continue to monitor. Chronic asymptomatic anemia: - Stable. Continue to monitor Diabetes mellitus Low-dose insulin sliding scale at bedside glucose ac/hs. Prophylaxis: On Eliquis which will also for DVT prophylaxis. Stress ulcer prophylaxis not indicated. Discharge Planning Can potentially discharged tomorrow if he remains stable on oral medications and cleared by cardiology. Navarro Casiano MD November 04, 2016 08:40
[2016-11-04] MEDS: SODIUM CHLORIDE 0.9% FLUSH 10 ML FLUSH SCH ×2 (09:00→21:48)
[2016-11-04] MEDS: ASPIRIN EC 81 MG TABEC PO SCH (09:14)
[2016-11-04] MEDS: ATORVASTATIN 40 MG TAB PO SCH (09:15)
[2016-11-04] MEDS: APIXABAN 5 MG TABLET PO SCH ×2 (09:15→21:48)
[2016-11-04] MEDS: METOPROLOL TARTRATE 50 MG TAB PO SCH ×2 (09:15→21:48)
[2016-11-04] MEDS: AMIODARONE 200 MG TAB PO SCH (09:15)
--- NOTE | 2016-11-04 20:03 | ECHLIM ---
Study Study Date:11/04/2016 STUDY CONCLUSIONS SUMMARY - Left ventricle: The cavity size was mildly dilated. Wall thickness was normal. Systolic function was severely reduced. The estimated ejection fraction was 25%. Wall motion was normal; there were no regional wall motion abnormalities. - Mitral valve: Mildly calcified annulus. - Right ventricle: The cavity size was normal. Wall thickness was normal. Pacer/ICD lead in the R ventricle - Tricuspid valve: Mild regurgitation. If LV function is below 40, please consider prescribing an ACEI or ARB or document rationale for non-use. PROCEDURE DATA STUDY STATUS: Elective. Procedure: Transthoracic echocardiography. Image quality was good. Scanning was performed from the parasternal, apical, and subcostal acoustic windows. Study completion: The patient tolerated the procedure well. Transthoracic echocardiography. M-mode, complete 2D, complete spectral Doppler, and color Doppler. Patient status: Inpatient. CARDIAC ANATOMY LEFT VENTRICLE: The cavity size was mildly dilated. Wall thickness was normal. Systolic function was severely reduced. The estimated ejection fraction was 25%. Wall motion was normal; there were no regional wall motion abnormalities. AORTIC VALVE: Trileaflet; mildly thickened leaflets. Doppler: Transvalvular velocity was within the normal range. There was no stenosis. No regurgitation. AORTA: Aortic root: The aortic root was normal in size. MITRAL VALVE: Mildly calcified annulus. Doppler: Transvalvular velocity was within the normal range. There was no evidence for stenosis. Trace regurgitation. LEFT ATRIUM: The atrium was normal in size. RIGHT VENTRICLE: The cavity size was normal. Wall thickness was normal. Pacer/ICD lead in the R ventricle PULMONIC VALVE: Doppler: Transvalvular velocity was within the normal range. There was no evidence for stenosis. No regurgitation. TRICUSPID VALVE: Structurally normal valve. Doppler: Transvalvular velocity was within the normal range. Mild regurgitation. PULMONARY ARTERY: The main pulmonary artery was normal-sized. Systolic pressure was within the normal range. RIGHT ATRIUM: The atrium was normal in size. PERICARDIUM: There was no pericardial effusion. SYSTEMIC VEINS: Inferior vena cava: The vessel was normal in size. BASIC MEASUREMENTS ADULT NORMAL Left ventricle LV internal dimension, ED, chordal level, *53.8 mm 43-52 PLAX LV internal dimension, ES, chordal level, *48.8 mm 23-38 PLAX Fractional shortening, chordal level, PLAX *9 % >29 LV posterior wall thickness, ED 8.56 mm IVS/LVPW ratio, ED 1.26 <1.3 Ventricular septum Septal thickness, ED 10.8 mm Aortic valve Leaflet separation 22 mm 15-26 BASIC MEASUREMENTS ADULT NORMAL Aortic valve Leaflet separation 22 mm 15-26 Aorta Root diameter, ED *38 mm 20-37 DOPPLER MEASUREMENTS ADULT NORMAL Mitral valve Peak E-wave velocity 45.4 cm/s Peak A-wave velocity 90.8 cm/s Peak E/A ratio 0.5 Tricuspid valve Regurgitant peak velocity 280 cm/s Peak RV-RA gradient, S 31 mm Hg Maximal regurgitant velocity 280 cm/s LEGEND: Mean values are shown as u=mean value. Asterisk (*) espitia values outside specified normal range. Prepared and signed by Vic Chavez [id number]
--- NOTE | 2016-11-04 23:07 | EKG ---
Date Performed: 11/03/2016 Time Performed: 13:16:23 PTAGE: 71 years EKG: ELECTRONIC VENTRICULAR PACEMAKER ABNORMAL RHYTHM ECG PREVIOUS TRACING : 11/03/2016 05.21 Compared to prior tracing no significant change DOCTOR: Frederick Spears Interpretating Date/Time 11/04/2016 23:05:38
[2016-11-05] VITALS (12 sets, daily range): BP systolic 113–152; BP diastolic 67–89; PULSE 75–95; RESP 16–18; TEMP 97.7–98.4; O2SAT 98–100
[2016-11-05] MEDS: CHLORHEXIDINE GLUCONATE 2 % 1 PACK (2 CLOTHS) TOP SCH (01:28)
[2016-11-05] MEDS: INSULIN ASPART SUPPLEMENTAL SCALE SQ SCH (06:12)
--- NOTE | 2016-11-05 08:41 | PD.CARD.PN ---
Subjective Subjective Remarks Feels "good". Denies CP, dyspnea, dizziness, palpitations, nausea, abdominal pain. Objective Medications Item Value Date Time Metoprolol 100 mg 11/05/16 0900 Tartrate Q12HR/PO (Lopressor) Amiodarone HCl 400 mg 11/04/16 0900 (Cordarone) DAILY/PO 11/04/16 0915 Apixaban 5 mg 11/03/16 2100 (Eliquis) BID/PO 11/04/16 2148 Atorvastatin 40 mg 11/03/16 1030 Calcium DAILY/PO 11/04/16 0915 (Lipitor) Aspirin 81 mg 11/03/16 1030 (Ecotrin Ec) DAILY/PO 11/04/16 0914 Vital Signs / I&O Vital Signs Date Time Temp Pulse Resp B/P Pulse Ox O2 Delivery O2 Flow Rate FiO2 11/05/16 08:00 83 11/05/16 07:00 97.7 90 18 113/71 98 11/05/16 07:00 75 11/05/16 06:00 80 11/05/16 05:00 80 11/05/16 04:00 98.0 80 18 118/67 98 11/05/16 04:00 81 11/05/16 03:00 77 11/05/16 02:00 77 11/05/16 01:00 80 11/05/16 00:00 98.4 88 18 152/89 98 11/05/16 00:00 75 11/04/16 23:00 80 11/04/16 22:00 82 11/04/16 21:00 78 11/04/16 20:00 98.1 85 18 138/71 97 11/04/16 20:00 83 11/04/16 19:00 74 11/04/16 18:00 80 11/04/16 17:00 83 11/04/16 16:00 78 11/04/16 15:00 72 11/04/16 15:00 98.4 90 18 123/68 97 11/04/16 14:03 76 11/04/16 13:32 88 11/04/16 12:00 96 11/04/16 11:00 98.4 86 18 130/72 94 11/04/16 11:00 86 11/04/16 10:11 93 11/04/16 09:00 100 I/O 11/04/16 11/04/16 11/04/16 11/05/16 11/05/16 11/05/16 07:00 15:00 23:00 07:00 15:00 23:00 Intake Total 240 ml 960 ml 240 ml Output Total 460 ml 200 ml 350 ml Balance -220 ml 760 ml -110 ml Intake Oral 240 ml 960 ml 240 ml Output Urine Total 460 ml 200 ml 350 ml # Voids 3 # Bowel Movements 2 3 1 Physical Exam GENERAL: Well developed, well nourished. No acute distress. HEENT: Jugular venous pressure is normal. CHEST: Lungs clear to auscultation bilaterally. Unlabored respiratory effort. CARDIAC: Regular rate and rhythm without S3, S4, or murmur. ABDOMEN: Soft, nontender, no hepatosplenomegaly. Bowel sounds present. EXTREMITIES: No clubbing, cyanosis, or edema. Assessment and Plan Problem List: (1) AICD discharge Assessment and Plan: No further ICD shocks. It appears the shocks were delivered for SVT. Recommend continue max dosing of metoprolol and oral Amiodarone. OK to discharge today from a cardiac standpoint. (2) Ischemic cardiomyopathy Assessment and Plan: Compensated. No CHF. Maximize beta megan dosing. No PARVIN-I or ARB with his CRI. (3) Paroxysmal atrial fibrillation Assessment and Plan: No evidence from ICD interrogation of recent atrial fib. Continue apixaban. (4) CAD (coronary artery disease) Assessment and Plan: Stable CAD status. No recent angina. Cont medical therapy, including daily baby aspirin. Code Status full code Discussed Condition With patient Problem Qualifiers (1) CAD (coronary artery disease): Qualified Code: I25.10 - Coronary artery disease involving apache coronary artery of apache heart without angina pectoris Jon Macias MD November 05, 2016 08:40
[2016-11-05] MEDS ORDERED: METO100T PO (08:43)
[2016-11-05] MEDS ORDERED: AMIO200T PO (08:43)
[2016-11-05] MEDS ORDERED: METOPROLOL TARTRATE 50 MG TAB PO SCH (09:00)
[2016-11-05] MEDS: APIXABAN 5 MG TABLET PO SCH (09:09)
[2016-11-05] MEDS: SODIUM CHLORIDE 0.9% FLUSH 10 ML FLUSH SCH (09:09)
[2016-11-05] MEDS: ASPIRIN EC 81 MG TABEC PO SCH (09:10)
[2016-11-05] MEDS: ATORVASTATIN 40 MG TAB PO SCH (09:11)
[2016-11-05] MEDS: AMIODARONE 200 MG TAB PO SCH (09:11)
--- NOTE | 2016-11-05 10:22 | HHI.DS ---
Discharge Summary Admission Date Nov 03, 2016 at 06:53 Discharge Date: November 05, 2016 Admitting Diagnosis Vtach Multiple shocks delivered by ICD device Coronary artery disease status post CABG ICD Biotronik device Atrial fibrillation on chronic anticoagulation with Eliquis Hypertension Hyperlipidemia CKD, stage III DM History of colorectal cancer Ileostomy reversal 08/01/16 (Dr. Hillary Porter) Descending colectomy, sigmoid polypectomy and diverting loop ileostomy 02/16/16 Chronic asymptomatic anemia (1) AICD discharge ICD Code: Z45.02 (2) Ischemic cardiomyopathy ICD Code: I25.5 (3) Paroxysmal atrial fibrillation ICD Code: I48.0 (4) Elevated troponin ICD Code: R79.89 (5) HTN (hypertension) ICD Code: I10 (6) Anemia ICD Code: D64.9 (7) DM (diabetes mellitus) type II controlled peripheral vascular disorder ICD Code: E11.59 (8) V-tach ICD Code: I47.2 (9) CAD (coronary artery disease) ICD Code: I25.10 (10) Chronic kidney disease ICD Code: N18.9 (11) History of colon cancer ICD Code: Z85.038 (12) Cardiac LV ejection fraction 21-30% ICD Code: R93.1 Procedures None Brief History - From Admission 71-year-old male with past medical history of coronary artery disease status post CABG, chronic systolic heart failure with ejection fraction 20-25%, status post AICD (Biotronik device), hypertension, hyperlipidemia, colorectal cancer. He states that he awoke at around 4 AM and got up to get a drink of water and that his ICD fired numerous times. He denies any premonitory symptoms of chest discomfort or shortness of breath. Denies nausea vomiting. He also underwent cardioversion x2 and amiodarone 150 mg IV per E VAC. His heart rate was in the 130s upon arrival to the emergency department he was started on amiodarone drip. He did have a recent ileostomy reversal 10/[address] Deep Porter. He states he has been doing well postoperatively, denies abdominal pain and states that his appetite is almost back to normal. CBC/BMP: 11/04/16 0435 11/04/16 0435 Significant Findings Laboratory Tests Test 11/03/16 11/03/16 11/03/16 11/04/16 05:45 13:13 21:34 04:35 Red Blood Count 3.52 MIL/MM3 3.46 MIL/MM3 (4.50-5.90) (4.50-5.90) Hemoglobin 10.3 GM/DL 9.9 GM/DL (13.0-17.0) (13.0-17.0) Hematocrit 30.8 % 30.4 % (39.0-51.0) (39.0-51.0) Platelet Count 134 TH/MM3 149 TH/MM3 (150-450) (150-450) Neutrophils (%) (Auto) 78.3 % 75.4 % (16.0-70.0) (16.0-70.0) Monocytes (%) (Auto) 8.4 % (0.0-8.0) 8.4 % (0.0-8.0) Prothrombin Time 12.1 SEC (9.8-11.6) Activated Partial 23.9 SEC Thromboplast Time (24.3-30.1) Chloride Level 111 MEQ/L 109 MEQ/L (98-107) (98-107) Carbon Dioxide Level 18.1 MEQ/L (21.0-32.0) Blood Urea Nitrogen 31 MG/DL (7-18) 33 MG/DL (7-18) Creatinine 1.76 MG/DL 1.73 MG/DL (0.60-1.30) (0.60-1.30) Estimat Glomerular Filtration 39 ML/MIN (>89) 39 ML/MIN (>89) Rate Random Glucose 165 MG/DL (74-106) Troponin I 0.09 NG/ML 0.47 NG/ML 0.32 NG/ML (0.02-0.05) (0.02-0.05) (0.02-0.05) Creatine Kinase MB 6.4 NG/ML 4.9 NG/ML (0.5-3.6) (0.5-3.6) Total Creatine Kinase 335 U/L (39-308) Total Bilirubin 1.1 MG/DL (0.2-1.0) Albumin 2.9 GM/DL (3.4-5.0) Imaging Last Impressions Chest X-Ray 11/04/16 0000 Signed Impressions: Service Date/Time: Friday, November 04, 2016 04:59 - CONCLUSION: 1. Cardiomegaly. No acute cardiopulmonary disease. Virgilio Selby MD PE at Discharge GENERAL: This is a well-nourished, well-developed patient, in no apparent distress. Awake and alert. Sitting up in bedside chair. CARDIOVASCULAR: Normal rate and regular rhythm without murmurs, gallops, or rubs. RESPIRATORY: Good respiratory efforts. Breath sounds equal and clear to auscultation bilaterally. GASTROINTESTINAL: Abdomen soft, non-tender, non-distended. Dressing intact. Normal active bowel sounds MUSCULOSKELETAL: Extremities without cyanosis, or edema. NEURO: Alert & Oriented x4 to person, place, time, situation. Moves all ext x4 PSYCH: Appropriate mood and affect. Pt update on day of discharge Patient reports he feels well. No acute medical complaints. Reports good appetite. Denies any f/c, n/v, shortness of breath, chest pain or abdominal pain. Hospital Course 71 yo male with PMHX of CAD s/p CABG, atrial fibrillation on chronic anticoagulation with Eliquis, HTN and dyslipidemia admitted with multiple shocks delivered by I. Patient started on amiodarone drip upon admission due to concern for V tach. Device interrogated and patient had 14 episodes of SVT and shock delivered inappropriately. Adjustments made per device rep. Cardiology consulted. Patient transitioned to oral amiodarone and metoprolol with clinical improvement. Echocardiogram done revealing severely reduced systolic function with EF 25%. Patient other chronic medical conditions also managed included: History of colorectal cancer s/p descending colectomy, sigmoid polypectomy and diverting loop ileostomy 02/16/16 and subsequent ileostomy reversal 08/01/[address] Porter. Patient doing well from that standpoint. Dr. Porter updated regarding admission out of courtesy, formal consultation not needed. CKD stage III, remained stable during admission. Avoidance of nephrotoxins. Ischemic cardiomyopathy, compensated, No CHF. Beta megan dosing maximized. No PARVIN-I or ARB due to patients CRI. CAD, stable. No recent angina. Continue medical therapy to include daily baby aspirin. Chronic asymptomatic anemia which remained stable during admission. DM, managed with low dose insulin sliding scale and bedside glucose ac/hs. No further AICD discharge. Patient cleared for discharge from cardiac standpoint. Pt Condition on Discharge: Stable Discharge Disposition: Discharge Home Discharge Time: > 30 minutes Discharge Instructions DIET: Follow Instructions for: Heart Healthy Diet, Diabetic Diet Activities you can perform: Regular-No Restrictions Follow up Referrals: Cardiology - 2 Weeks with Jon Macias MD Colorectal Surgery - 3 Weeks with Hillary Porter MD PCP Follow-up - 1 Week New Medications: Metoprolol Tartrate (Metoprolol Tartrate) 100 Mg Tab 100 MG PO BID ARRHYTHMIA Days 30 Ref 11 TAB Amiodarone (Amiodarone) 200 Mg Tab 400 MG PO DAILY ARRHYTHMIA Days 30 Ref 11 TAB Continued Medications: Apixaban (Eliquis) 5 Mg Tab 5 MG PO BID Regulate Heart Beat #60 TAB Aspirin (Aspirin Low Dose) 81 Mg Chew 81 MG CHEW DAILY Ref 0 TAB Atorvastatin (Atorvastatin) 40 Mg Tab 40 MG PO HS Cholesterol Management #30 Ref 0 TAB Hydrocodone-Acetaminophen (Hydrocodone-Acetaminophen) 5-325 mg Tab 1-2 TAB PO Q6H PRN PAIN SCALE 1 TO 10 #30 TAB Metoprolol Tartrate (Metoprolol Tartrate) 100 Mg Tab 100 MG PO BID #60 Ref 0 TAB Additional Information Written by Dodie Murdock PA-C acting as scribe for Dr. Casiano on 11/05/16 at 10:28. This note was transcribed by scribe [Dodie Murdock PA-C]. I, Dr. Navarro Casiano personally performed the history, physical exam, and medical decision making; and confirmed the accuracy of the information in the transcribed note. Authenticated by Dr. Navarro Casiano on 11/05/16 at 1030. Dodie Murdock November 05, 2016 10:22 Navarro Casiano MD November 05, 2016 16:49
--- NOTE | 2016-11-05 10:32 | HHI.DCPOC ---
Discharge Care Plan Diagnosis: (1) HLD (hyperlipidemia) (2) Diabetes mellitus (3) HTN (hypertension) (4) CAD (coronary artery disease) (5) Anemia (6) Supraventricular tachycardia (7) Paroxysmal atrial fibrillation (8) V-tach (9) Ischemic cardiomyopathy (10) Chronic kidney disease (11) History of colon cancer (12) AICD discharge (13) Cardiac LV ejection fraction 21-30% Goals to Promote Your Health * To prevent worsening of your condition and complications * To maintain your health at the optimal level Directions to Meet Your Goals Take your medications as prescribed Follow your dietary instruction Follow activity as directed Keep your appointments as scheduled with Dr. Ramirez, Dr. Porter and Dr. Macias Take your immunizations and boosters as scheduled If your symptoms worsen call your PCP, if no PCP go to Urgent Care Center or Emergency Room Smoking is Dangerous to Your Health. Avoid second hand smoke Call the 24-hour hour crisis hotline for domestic abuse at Dodie Murdock November 05, 2016 10:32 Navarro Casiano MD November 05, 2016 16:48
== END 2016-11-05 11:27 | disposition home or self-care (01) | DRG 315 ==
LOC: NEPE 05:15 → NEDA 06:53 → HIMW 09:00 → HCIN 19:47
PROVIDERS: ADMIT Family Medicine; ATTEND Family Medicine
PROC: 4B02XTZ Measurement of Cardiac Defibrillator, External Approach (ICD-10-PCS; principal; 2016-11-03)
DX: T82.118A Breakdown (mechanical) of other cardiac electronic device, initial encounter (principal); I50.22 Chronic systolic (congestive) heart failure; I47.2 Ventricular tachycardia; I48.91 Unspecified atrial fibrillation; Z95.810 Presence of automatic (implantable) cardiac defibrillator; E83.42 Hypomagnesemia; I10 Essential (primary) hypertension; D64.9 Anemia, unspecified; E11.9 Type 2 diabetes mellitus without complications; I12.9 Hypertensive chronic kidney disease with stage 1 through stage 4 chronic kidney disease, or unspecified chronic kidney disease; N18.3 Chronic kidney disease, stage 3 (moderate); I25.10 Atherosclerotic heart disease of native coronary artery without angina pectoris; Z95.1 Presence of aortocoronary bypass graft; I25.5 Ischemic cardiomyopathy; E78.5 Hyperlipidemia, unspecified; Z79.01 Long term (current) use of anticoagulants; Z79.82 Long term (current) use of aspirin; Z85.048 Personal history of other malignant neoplasm of rectum, rectosigmoid junction, and anus
CPT/HCPCS: 71010; 80048; 80053; 82550; 82552; 82948; 83735; 84484; 85025; 85610; 85730; 87641; 93005; 93308; 94150; 96374; J0282; J1815; J3475; J7060